=== PATIENT | female | born 1955 | race Caucasian/White ===

== ENCOUNTER 2019-11-24 11:12 | Emergency (ER) | payer MEDICAID ==
[~2019-11-24] VITALS: Ht 167.6 cm; Wt 90.0 kg
[~2019-11-24 11:12] MED LIST: EFF37.5XRC PO; LEVO88TA7 PO; MIRT7.5T11 PO; TRAZ-251 PO
[2019-11-24] MEDS ORDERED: normal saline 1000ML IV soln IVB ONE (11:35)
[2019-11-24 12:11] LABS: BASOPHILS # (AUTO) 0.1 X10'3 (0-0.2); HEMOGLOBIN 11.1 g/dl (12.0-16.0); MEAN CORPUSCULAR HGB CONC 33.1 g/dL (33.0-36.5)
[2019-11-24 12:13] LABS: BASOPHILS % (AUTO) 1.1 % (0-1); EOSINOPHILS # (AUTO) 0.2 X10'3 (0-0.9); EOSINOPHILS % (AUTO) 1.7 % (0-6); HEMATOCRIT 33.5 % (35.0-45.0); LYMPHOCYTES # (AUTO) 2.7 X10'3 (1.1-4.8); LYMPHOCYTES % (AUTO) 22.7 % (21-51); MEAN CORPUSCULAR HEMOGLOBIN 29.8 PG (27.0-31.0); MEAN PLATELET VOLUME 6.6 FL (7.4-10.4); MONOCYTES # (AUTO) 0.8 X10'3 (0-0.9); MONOCYTES % (AUTO) 6.6 % (2-12); NEUTROPHILS # (AUTO) 8.2 X10'3 (1.8-7.7); NEUTROPHILS % (AUTO) 67.9 % (42-75); PLATELET COUNT 705 X10'3 (140-440); RED BLOOD COUNT 3.73 X10'6 (4.20-5.60); RED CELL DISTRIBUTION WIDTH 14.3 % (11.5-14.5)
[2019-11-24 12:26] LABS: ALANINE AMINOTRANSFERASE 22 U/L (12-78); ALBUMIN 2.9 G/DL (3.4-5.0); ALBUMIN/GLOBULIN RATIO 0.6 (1.1-1.5); ALKALINE PHOSPHATASE 116 IU/L (46-116); ANION GAP 13 (8-16); ASPARTATE AMINO TRANSFERASE 14 U/L (10-37); BILIRUBIN,TOTAL 0.2 MG/DL (0.1-1.0); BLOOD UREA NITROGEN 15 MG/DL (7-18); BUN/CREATININE RATIO 12.4 (6.6-38.0); CALCIUM 9.4 MG/DL (8.5-10.1); CHLORIDE 109 MMOL/L (99-107); CREATININE 1.21 MG/DL (0.40-0.90); GLUCOSE 104 MG/DL (70-104); LIPASE 116 U/L (73-393); POTASSIUM 3.9 MMOL/L (3.5-5.1); SODIUM 142 MMOL/L (135-145); TOTAL CARBON DIOXIDE 19.7 MMOL/L (24-32); TOTAL PROTEIN 7.5 G/DL (6.4-8.2); eGFR 45 ML/MIN
[2019-11-24 12:58] VITALS: BP 117/69
[2019-11-24] MEDS ORDERED: metoclopramide 5 mg/ml inj IV ONE (13:00)
[2019-11-24] MEDS ORDERED: oxyCODONE/APAP 5-325mg tablet PO ONE (13:00)
--- NOTE | 2019-11-24 13:10 | NUR ---
Assited LANNY Molina with suture & staple removal. Surgical wound dressed w/ xeroform & gauze after 18 sutures & 13 liz removed.
== END 2019-11-24 13:38 | disposition home or self-care (01) ==
LOC: ER 11:13
DX: T81.89XA Other complications of procedures, not elsewhere classified, initial encounter (principal); R19.7 Diarrhea, unspecified; R06.02 Shortness of breath; Z88.5 Allergy status to narcotic agent; Z88.1 Allergy status to other antibiotic agents; Z88.8 Allergy status to other drugs, medicaments and biological substances; Z79.899 Other long term (current) drug therapy; Y92.89 Other specified places as the place of occurrence of the external cause
CPT/HCPCS: 80053; 83690; 85025; 96374; 99283; J2765; J7030

== ENCOUNTER 2019-12-08 11:19 | Inpatient (IN) | payer MEDICAID ==
[~2019-12-08] VITALS: Ht 167.6 cm; Wt 102.3 kg
[2019-12-08 12:15] LABS: BASOPHILS # (AUTO) 0.1 X10'3 (0-0.2); BASOPHILS % (AUTO) 0.7 % (0-1); EOSINOPHILS # (AUTO) 0.2 X10'3 (0-0.9); EOSINOPHILS % (AUTO) 2.6 % (0-6); HEMATOCRIT 33.3 % (35.0-45.0); HEMOGLOBIN 10.9 g/dl (12.0-16.0); LYMPHOCYTES # (AUTO) 2.7 X10'3 (1.1-4.8); LYMPHOCYTES % (AUTO) 33.1 % (21-51); MEAN CORPUSCULAR HEMOGLOBIN 29.6 PG (27.0-31.0); MEAN CORPUSCULAR HGB CONC 32.7 g/dL (33.0-36.5); MEAN CORPUSCULAR VOLUME 90.5 FL (78-98); MEAN PLATELET VOLUME 7.4 FL (7.4-10.4); MONOCYTES # (AUTO) 0.6 X10'3 (0-0.9); MONOCYTES % (AUTO) 7.6 % (2-12); NEUTROPHILS # (AUTO) 4.5 X10'3 (1.8-7.7); PLATELET COUNT 339 X10'3 (140-440); RED BLOOD COUNT 3.68 X10'6 (4.20-5.60); RED CELL DISTRIBUTION WIDTH 14.3 % (11.5-14.5)
[2019-12-08] MEDS ORDERED: iohexol 350MG/ML 100ml bottle IV ONE (12:43)
[2019-12-08 12:51] LABS: ALANINE AMINOTRANSFERASE 28 U/L (12-78); ALBUMIN 3.2 G/DL (3.4-5.0); ALBUMIN/GLOBULIN RATIO 0.8 (1.1-1.5); ALKALINE PHOSPHATASE 104 IU/L (46-116); ANION GAP 14 (8-16); ASPARTATE AMINO TRANSFERASE 17 U/L (10-37); BILIRUBIN,TOTAL 0.1 MG/DL (0.1-1.0); BLOOD UREA NITROGEN 24 MG/DL (7-18); BUN/CREATININE RATIO 23.5 (6.6-38.0); CHLORIDE 108 MMOL/L (99-107); CREATININE 1.02 MG/DL (0.40-0.90); GLUCOSE 115 MG/DL (70-104); POTASSIUM 3.9 MMOL/L (3.5-5.1); SODIUM 137 MMOL/L (135-145); TOTAL PROTEIN 7.1 G/DL (6.4-8.2); eGFR 55 ML/MIN
[2019-12-08 12:55] LABS: TOTAL CARBON DIOXIDE 14.8 MMOL/L (24-32)
[2019-12-08] MEDS ORDERED: normal saline 1000ml 1,000 ML IV ONE (13:35)
--- NOTE | 2019-12-08 13:58 | NUR ---
Per cryogenic transport driver the pt's PIV infiltrated just after receiving contrast. Went to bedside and found pt's PIV to be infiltrated. Removed IV and placed warm compress on her arm.
[2019-12-08] MEDS ORDERED: LISI10TA4 PO (14:54)
[2019-12-08] MEDS ORDERED: normal saline 1000ml 1,000 ML IV SCH (14:56)
[2019-12-08] MEDS ORDERED: acetaminophen 650mg rectal suppository RC PRN (15:00)
[2019-12-08] MEDS ORDERED: magnesium Cl slow-release 64mg tablet PO PRN (15:00)
[2019-12-08] MEDS ORDERED: magnesium 2GM in 50ml NS 50 ML IV PRN (15:00)
[2019-12-08] MEDS ORDERED: potassium CL 10mEq/100ml bag 100 ML IV PRN ×2 (15:00)
[2019-12-08] MEDS ORDERED: HYDROcodone/acetaminophen 5mg/325mg tablet PO PRN (15:00)
[2019-12-08] MEDS ORDERED: magnesium hydroxide 30ml (MOM) UD suspension PO PRN (15:00)
[2019-12-08] MEDS ORDERED: acetaminophen 325mg tablet PO PRN ×2 (15:00)
[2019-12-08] MEDS ORDERED: metoclopramide 5 mg/ml inj IV PRN (15:00)
[2019-12-08] MEDS ORDERED: ondansetron/PF 4mg/2ml inj IV PRN (15:00)
[2019-12-08] MEDS ORDERED: potassium Cl 20 mEq SR tablet PO PRN ×2 (15:00)
[2019-12-08] MEDS ORDERED: magnesium 4gm in 100ml NS 100 ML IV PRN (15:00)
[2019-12-08] MEDS ORDERED: mag hydrox/Alum hydrox/simeth 30ml oral suspension PO PRN (15:00)
[2019-12-08] MEDS ORDERED: MIRT30TA8 PO (15:10)
[2019-12-08] MEDS ORDERED: TOP100T PO (15:10)
[2019-12-08] MEDS ORDERED: FLUO40CA PO (15:10)
[2019-12-08] MEDS ORDERED: BUPR300T86 PO (15:10)
[2019-12-08] MEDS: MESSAGE TO NURSING PO SCH (15:12)
[2019-12-08 15:16] LABS: ABG BASE EXCESS -9.1 mmol/L (-2.0-2.0); ABG HCO3 14.6 mmol/L (22.0-26.0); ABG OXYGEN SATURATION 97.1 % (94-97); ABG PCO2 (T) 25.8 mmHg (32.0-45.0); ABG PO2 (T) 96.5 mmHg (75.0-100.0); ALLEN'S TEST POSITIVE; FCOHb 0.2 % (0.0-3.9); FMetHb 0.1 % (0.0-1.5); FO2Hb 96.8 % (94-97); TOTAL HEMOGLOBIN 11.3 G/dl (12.0-16.0)
[2019-12-08 16:24] LABS: MAGNESIUM 1.7 MG/DL (1.5-2.4)
[2019-12-08] MEDS ORDERED: LORazepam 0.5 MG tablet PO PRN (17:15)
[2019-12-08] MEDS: sodium bicarbonate (8.4%) inj. 100 MEQ in sodium chloride 0.45% 900 ML IV SCH (17:24)
[2019-12-08] MEDS ORDERED: topiramate 100mg tablet PO PRN (19:00)
--- NOTE | 2019-12-08 19:20 | NUR ---
I have received report from TIFFANY Lopez and had the opportunity to ask questions.
[2019-12-08 19:30] VITALS: BP 113/67
--- NOTE | 2019-12-08 19:30 | NUR ---
Pt [facility]. Belongings are with the pt.. Pt ambulated from gurney to bed and from bed to the bathroom; activity tolerated well. Place on tele monitor. 2 RN skin assessment, DART, and MRSA swab done.
[2019-12-08] MEDS: K and/or MAG REPLACEMENT MC SCH (20:00)
[2019-12-08] MEDS: buPROPion SR 150mg tablet PO SCH (20:28)
[2019-12-08] MEDS: diatr meglu/diatrizoate 30ml oral sol.-(3 dose) bottle PO SCH (20:29)
[2019-12-08] MEDS: mirtazapine 15mg tablet PO SCH (20:29)
[2019-12-08] MEDS ORDERED: temazepam 15mg capsule PO PRN (21:00)
[2019-12-08] MEDS: HYDROcodone/acetaminophen 10/325mg tab PO PRN (22:08)
[2019-12-09] VITALS (7 sets, daily range): BP systolic 93–123; BP diastolic 38–70
[2019-12-09] MEDS: HYDROcodone/acetaminophen 10/325mg tab PO PRN ×5 (03:17→22:38)
[2019-12-09] MEDS: sodium bicarbonate (8.4%) inj. 100 MEQ in sodium chloride 0.45% 900 ML IV SCH (03:18)
[2019-12-09] MEDS: sodium bicarbonate (8.4%) inj. 100 MEQ in sodium chloride 0.45% 1,000 ML IV SCH ×2 (03:54→16:21)
[2019-12-09 05:45] LABS: BASOPHILS % (AUTO) 0.8 % (0-1); EOSINOPHILS # (AUTO) 0.2 X10'3 (0-0.9); EOSINOPHILS % (AUTO) 4.6 % (0-6); HEMATOCRIT 29.1 % (35.0-45.0); HEMOGLOBIN 9.7 g/dl (12.0-16.0); LYMPHOCYTES # (AUTO) 2.5 X10'3 (1.1-4.8); LYMPHOCYTES % (AUTO) 48.7 % (21-51); MEAN CORPUSCULAR HEMOGLOBIN 30.3 PG (27.0-31.0); MEAN CORPUSCULAR HGB CONC 33.5 g/dL (33.0-36.5); MEAN CORPUSCULAR VOLUME 90.5 FL (78-98); MEAN PLATELET VOLUME 7.2 FL (7.4-10.4); MONOCYTES # (AUTO) 0.6 X10'3 (0-0.9); MONOCYTES % (AUTO) 11.3 % (2-12); NEUTROPHILS # (AUTO) 1.7 X10'3 (1.8-7.7); NEUTROPHILS % (AUTO) 34.6 % (42-75); PLATELET COUNT 301 X10'3 (140-440); RED BLOOD COUNT 3.21 X10'6 (4.20-5.60); RED CELL DISTRIBUTION WIDTH 14.3 % (11.5-14.5)
--- NOTE | 2019-12-09 06:08 | NUR ---
Problems reprioritized. Patient report given, questions answered & plan of care reviewed with TIFFANY Seay.
--- NOTE | 2019-12-09 06:12 | NUR ---
Patient in room PCU 3012X. I have received report from Nadia ALLEN and had the opportunity to ask questions and assume patient care. Patient laying in bed, awake, alert, no signs of distress, watching TV. Iv bicarb infusing at ordered rate. Will continue to monitor.
[2019-12-09 06:20] LABS: ALANINE AMINOTRANSFERASE 23 U/L (12-78); ALBUMIN 2.7 G/DL (3.4-5.0); ALBUMIN/GLOBULIN RATIO 0.8 (1.1-1.5); ALKALINE PHOSPHATASE 91 IU/L (46-116); ANION GAP 13 (8-16); ASPARTATE AMINO TRANSFERASE 16 U/L (10-37); BILIRUBIN,TOTAL 0.2 MG/DL (0.1-1.0); BLOOD UREA NITROGEN 18 MG/DL (7-18); BUN/CREATININE RATIO 20.2 (6.6-38.0); CALCIUM 8.8 MG/DL (8.5-10.1); CHLORIDE 109 MMOL/L (99-107); CHOL/HDL RATIO 5.1 (0.00-4.99); CHOLESTEROL 159 MG/DL (0-200); CREATININE 0.89 MG/DL (0.40-0.90); GLUCOSE 92 MG/DL (70-104); HDL CHOLESTEROL 31 MG/DL (35-60); LDL CHOLESTEROL 93 MG/DL (50-100); MAGNESIUM 1.8 MG/DL (1.5-2.4); POTASSIUM 3.6 MMOL/L (3.5-5.1); SODIUM 143 MMOL/L (135-145); TOTAL CARBON DIOXIDE 21.4 MMOL/L (24-32); TOTAL PROTEIN 6.1 G/DL (6.4-8.2); TRIGLYCERIDES 212 MG/DL (20-135); eGFR 64 ML/MIN
[2019-12-09] MEDS: diatr meglu/diatrizoate 30ml oral sol.-(3 dose) bottle PO SCH ×2 (07:28→10:35)
[2019-12-09] MEDS: buPROPion SR 150mg tablet PO SCH ×2 (07:29→20:34)
[2019-12-09] MEDS: FLUoxetine 20mg capsule PO SCH (07:29)
[2019-12-09] MEDS: levoTHYROXINE 88mcg tablet PO SCH (07:29)
[2019-12-09] MEDS: enoxaparin 40mg/0.4ml syringe SUBCUT SCH (07:30)
[2019-12-09] MEDS: K and/or MAG REPLACEMENT MC SCH ×2 (08:00→20:00)
[2019-12-09] MEDS: MESSAGE TO NURSING PO SCH (10:00)
[2019-12-09 10:14] LABS: CLARITY,URINE SLIGHTLY CLOUDY (Clear); COLOR,URINE YELLOW (Yellow); GLUCOSE, URINE NEGATIVE (Neg); KETONES,URINE NEGATIVE (Neg); LEUKOCYTE ESTERASE ,URINE TRACE (Neg); NITRITES, URINE NEGATIVE (Neg); OCCULT BLOOD,URINE NEGATIVE (Neg); PROTEIN,URINE NEGATIVE (Neg); UROBILINOGEN,URINE 0.2 E.U/dL (0.2-1.0)
[2019-12-09 10:19] LABS: UA COLLECTION TYPE CLN CATCH MIDSTREAM
[2019-12-09 10:20] LABS: BACTERIA,URINE 1+ /HPF (Neg); HYALINE CASTS 0-3 /LPF (NEGATIVE); MUCUS STRANDS FEW /LPF (Neg); RBC,URINE 0-2 /HPF (0-2); SQUAMOUS EPITHELIAL CELL,UR MANY /LPF (FEW); WBC,URINE 0-4 /HPF (0-4)
[2019-12-09] MEDS ORDERED: iohexol 300mg/ml 100ml inj. ONE (10:41)
--- NOTE | 2019-12-09 11:42 | NUR ---
Dr. Arauz at bedside assessing patient, awaiting results of CT abdomen and echo at this time. IV bicarb infusing.
--- NOTE | 2019-12-09 17:47 | NUR ---
Patient care discussed with TIFFANY Marte, regarding wound care. Image reviewed, likely moisture on abdomen causing irritation, recommendations for calazime cream. Patient given calazime barrier cream and educated on use.
--- NOTE | 2019-12-09 18:37 | NUR ---
Problems reprioritized. Patient report given, questions answered & plan of care reviewed with Nadia ALLEN.
[2019-12-09] MEDS: mirtazapine 15mg tablet PO SCH (20:34)
[2019-12-10] MEDS: sodium bicarbonate (8.4%) inj. 100 MEQ in sodium chloride 0.45% 1,000 ML IV SCH (02:17)
[2019-12-10 06:00] VITALS: BP 125/47
[2019-12-10 06:01] LABS: BASOPHILS % (AUTO) 0.6 % (0-1); EOSINOPHILS # (AUTO) 0.2 X10'3 (0-0.9); EOSINOPHILS % (AUTO) 5.4 % (0-6); HEMATOCRIT 28.9 % (35.0-45.0); HEMOGLOBIN 9.6 g/dl (12.0-16.0); LYMPHOCYTES # (AUTO) 2.1 X10'3 (1.1-4.8); LYMPHOCYTES % (AUTO) 48.4 % (21-51); MEAN CORPUSCULAR HEMOGLOBIN 29.9 PG (27.0-31.0); MEAN CORPUSCULAR HGB CONC 33.3 g/dL (33.0-36.5); MEAN PLATELET VOLUME 7.6 FL (7.4-10.4); MONOCYTES # (AUTO) 0.5 X10'3 (0-0.9); MONOCYTES % (AUTO) 11.6 % (2-12); NEUTROPHILS # (AUTO) 1.5 X10'3 (1.8-7.7); PLATELET COUNT 297 X10'3 (140-440); RED BLOOD COUNT 3.21 X10'6 (4.20-5.60); RED CELL DISTRIBUTION WIDTH 14.4 % (11.5-14.5); WHITE BLOOD COUNT 4.4 X10'3 (4.5-11.0)
--- NOTE | 2019-12-10 06:04 | NUR ---
Problems reprioritized. Patient report given, questions answered & plan of care reviewed with Geena Goodson RN.
--- NOTE | 2019-12-10 06:10 | NUR ---
Patient in room PCU 3010t. I have received report from Nadia ALLEN and had the opportunity to ask questions and assume patient care.
[2019-12-10 06:20] LABS: ALANINE AMINOTRANSFERASE 20 U/L (12-78); ALBUMIN 2.5 G/DL (3.4-5.0); ALBUMIN/GLOBULIN RATIO 0.8 (1.1-1.5); ALKALINE PHOSPHATASE 83 IU/L (46-116); ANION GAP 9 (8-16); ASPARTATE AMINO TRANSFERASE 15 U/L (10-37); BILIRUBIN,TOTAL 0.1 MG/DL (0.1-1.0); BLOOD UREA NITROGEN 15 MG/DL (7-18); BUN/CREATININE RATIO 16.3 (6.6-38.0); CALCIUM 8.7 MG/DL (8.5-10.1); CHLORIDE 110 MMOL/L (99-107); CREATININE 0.92 MG/DL (0.40-0.90); GLUCOSE 90 MG/DL (70-104); MAGNESIUM 1.8 MG/DL (1.5-2.4); POTASSIUM 3.9 MMOL/L (3.5-5.1); SODIUM 145 MMOL/L (135-145); TOTAL CARBON DIOXIDE 26.2 MMOL/L (24-32); TOTAL PROTEIN 5.8 G/DL (6.4-8.2); eGFR 62 ML/MIN
[2019-12-10] MEDS: K and/or MAG REPLACEMENT MC SCH ×2 (08:00→20:00)
[2019-12-10] MEDS: levoTHYROXINE 88mcg tablet PO SCH (08:55)
[2019-12-10] MEDS: furosemide 40mg/4ml inj IV SCH ×2 (08:55→20:49)
[2019-12-10] MEDS: FLUoxetine 20mg capsule PO SCH (08:55)
[2019-12-10] MEDS: enoxaparin 40mg/0.4ml syringe SUBCUT SCH (08:55)
[2019-12-10] MEDS: buPROPion SR 150mg tablet PO SCH ×2 (08:55→20:49)
[2019-12-10] MEDS: MESSAGE TO NURSING PO SCH (10:00)
[2019-12-10] MEDS: HYDROcodone/acetaminophen 10/325mg tab PO PRN ×3 (10:58→21:52)
[2019-12-10 11:00] VITALS: BP 100/45
--- NOTE | 2019-12-10 11:11 | NUR ---
PAGER ID: [phone] MESSAGE: Geena perez [phone]. Rianna Mcmahon [id number]. Pt c/o dysuria today, UA sent yesterday but was dirty sample. Do you want another UA or some pyridium? Thanks!
[2019-12-10 11:37] LABS: CLARITY,URINE CLEAR (Clear); COLOR,URINE STRAW (Yellow); GLUCOSE, URINE NEGATIVE (Neg); KETONES,URINE NEGATIVE (Neg); LEUKOCYTE ESTERASE ,URINE NEGATIVE (Neg); NITRITES, URINE NEGATIVE (Neg); OCCULT BLOOD,URINE NEGATIVE (Neg); PROTEIN,URINE NEGATIVE (Neg); UROBILINOGEN,URINE 0.2 E.U/dL (0.2-1.0)
[2019-12-10 11:41] LABS: UA COLLECTION TYPE CLN CATCH MIDSTREAM
[2019-12-10 15:00] VITALS: BP 96/41
[2019-12-10 18:00] VITALS: BP 137/80
--- NOTE | 2019-12-10 18:30 | NUR ---
Patient in room PCU 3017. I have received report from Geena Gardner RN and had the opportunity to ask questions and assume patient care.
--- NOTE | 2019-12-10 18:30 | NUR ---
Problems reprioritized. Patient report given, questions answered & plan of care reviewed with Kinza ALLEN.
[2019-12-10] MEDS: mirtazapine 15mg tablet PO SCH (20:49)
--- NOTE | 2019-12-10 21:45 | NUR ---
pt was hard to arouse earlier and had thick sputum, held nonessential medication due to potential of aspirating. rechecked pt BP, was low so held propranlol, will continue to monitor pt Addendum: 12/11/19 at 0607 by Kinza Washington RN wrong pt
[2019-12-10 22:00] VITALS: BP 99/52
[2019-12-11 05:42] VITALS: BP 118/56
--- NOTE | 2019-12-11 06:08 | NUR ---
Problems reprioritized. Patient report given, questions answered & plan of care reviewed with Phuong ALLEN.
--- NOTE | 2019-12-11 06:08 | NUR ---
Patient in room PCU 3017. I have received report from TIFFANY Echols and had the opportunity to ask questions and assume patient care. Patient asleep in bed and in no acute distress.
[2019-12-11 06:12] LABS: BASOPHILS % (AUTO) 0.8 % (0-1); EOSINOPHILS # (AUTO) 0.2 X10'3 (0-0.9); EOSINOPHILS % (AUTO) 4.2 % (0-6); HEMATOCRIT 32.2 % (35.0-45.0); HEMOGLOBIN 10.7 g/dl (12.0-16.0); LYMPHOCYTES # (AUTO) 2.1 X10'3 (1.1-4.8); LYMPHOCYTES % (AUTO) 40.7 % (21-51); MEAN CORPUSCULAR HEMOGLOBIN 29.6 PG (27.0-31.0); MEAN CORPUSCULAR HGB CONC 33.3 g/dL (33.0-36.5); MEAN CORPUSCULAR VOLUME 88.9 FL (78-98); MEAN PLATELET VOLUME 7.5 FL (7.4-10.4); MONOCYTES # (AUTO) 0.6 X10'3 (0-0.9); MONOCYTES % (AUTO) 10.6 % (2-12); NEUTROPHILS # (AUTO) 2.3 X10'3 (1.8-7.7); NEUTROPHILS % (AUTO) 43.7 % (42-75); PLATELET COUNT 327 X10'3 (140-440); RED BLOOD COUNT 3.62 X10'6 (4.20-5.60); RED CELL DISTRIBUTION WIDTH 14.2 % (11.5-14.5); WHITE BLOOD COUNT 5.2 X10'3 (4.5-11.0)
[2019-12-11 06:21] LABS: ALANINE AMINOTRANSFERASE 17 U/L (12-78); ALBUMIN 2.8 G/DL (3.4-5.0); ALBUMIN/GLOBULIN RATIO 0.8 (1.1-1.5); ALKALINE PHOSPHATASE 88 IU/L (46-116); ANION GAP 12 (8-16); ASPARTATE AMINO TRANSFERASE 14 U/L (10-37); BILIRUBIN,TOTAL 0.2 MG/DL (0.1-1.0); BLOOD UREA NITROGEN 20 MG/DL (7-18); BUN/CREATININE RATIO 19.8 (6.6-38.0); CALCIUM 9.1 MG/DL (8.5-10.1); CHLORIDE 104 MMOL/L (99-107); CREATININE 1.01 MG/DL (0.40-0.90); GLUCOSE 94 MG/DL (70-104); MAGNESIUM 1.7 MG/DL (1.5-2.4); POTASSIUM 3.6 MMOL/L (3.5-5.1); SODIUM 142 MMOL/L (135-145); TOTAL CARBON DIOXIDE 26.4 MMOL/L (24-32); TOTAL PROTEIN 6.5 G/DL (6.4-8.2); eGFR 55 ML/MIN
[2019-12-11 07:00] VITALS: BP 121/71
[2019-12-11] MEDS: furosemide 40mg/4ml inj IV SCH (07:22)
[2019-12-11] MEDS: enoxaparin 40mg/0.4ml syringe SUBCUT SCH (07:23)
[2019-12-11] MEDS: levoTHYROXINE 88mcg tablet PO SCH (07:23)
[2019-12-11] MEDS: buPROPion SR 150mg tablet PO SCH (07:23)
[2019-12-11] MEDS: FLUoxetine 20mg capsule PO SCH (07:23)
[2019-12-11] MEDS: K and/or MAG REPLACEMENT MC SCH (07:33)
[2019-12-11] MEDS ORDERED: FURO20TA4 PO (11:04)
[2019-12-11] MEDS ORDERED: POTA10TA36 PO (11:04)
--- NOTE | 2019-12-11 12:37 | NUR ---
Patient stable for discharge per MD orders. All discharge instructions reviewed and all questions answered appropriately. Patient belongings collected and sent with patient. New prescriptions were sent electronically to [facility] in [place]. Patient will call and schedule a follow up appointment with PCP at [facility]. Patient will also call Dr. Verdugo to set up an appointment as well. PIV discontinued and cannula intact. electric sealing machine operator discontinued. Patient ambulated down to [facility] and left via private vehicle that was parked across the street and patient drove herself home.
== END 2019-12-11 12:37 | disposition home or self-care (01) | DRG 194 ==
LOC: ER 11:20 → ED HOLD 14:56 → PCU 3S 19:30
PROVIDERS: ADMIT Family Medicine; ATTEND Family Medicine
PROC: BW211ZZ Computerized Tomography (CT Scan) of Abdomen and Pelvis using Low Osmolar Contrast (ICD-10-PCS; principal; 2019-12-09)
DX: I50.31 Acute diastolic (congestive) heart failure (principal); I50.810 Right heart failure, unspecified; I27.20 Pulmonary hypertension, unspecified; E87.2 Acidosis; D64.9 Anemia, unspecified; E78.5 Hyperlipidemia, unspecified; E03.9 Hypothyroidism, unspecified; F32.9 Major depressive disorder, single episode, unspecified; J45.909 Unspecified asthma, uncomplicated; Z03.818 Encounter for observation for suspected exposure to other biological agents ruled out
CPT/HCPCS: 36415; 36600; 71045; 71275; 74177; 76937; 80053; 80061; 81001; 81003; 82803; 83605; 83735; 83880; 84100; 84443; 84484; 85018; 85025; 87040; 87081; 87635; 93005; 93306; 94760; 97116; 99285; G0378; J1650; J1940; J7030; Q9963; Q9967

== ENCOUNTER 2020-03-02 09:46 | Day surgery (SDC) | payer MEDICAID ==
[~2020-03-02] VITALS: Ht 167.6 cm; Wt 95.3 kg
[~2020-03-02 09:46] MED LIST changes: +BUPR300T86 PO; -EFF37.5XRC PO; +FLUO40CA PO; +FURO20TA4 PO; +LIOT25TA12 PO; +LISI10TA4 PO; +MESSAGE TO NURSING PO ONE; +MIRT30TA8 PO; +MIRT45TA83 PO; -MIRT7.5T11 PO; +POTA10TA36 PO; +TOP100T PO; -TRAZ-251 PO; +ceFAZolin 2gm in dextrose, iso 50 ML IV ONE; +famotidine 10mg tablet PO ONE; +famotidine 20mg tablet PO ONE
[2020-03-02 10:00] VITALS: BP 114/90
[2020-03-02] MEDS ORDERED: CLINDAMYCIN/D5W 900mg/50ml 50 ML IV ONE (10:35)
[2020-03-02] MEDS: ringers solution, lacted 1,000 ML IV SCH ×2 (11:21→20:04)
[2020-03-02 12:00] LABS: BASOPHILS % (AUTO) 0.5 % (0-1); EOSINOPHILS # (AUTO) 0.1 X10'3 (0-0.9); EOSINOPHILS % (AUTO) 1.1 % (0-6); LYMPHOCYTES # (AUTO) 3.1 X10'3 (1.1-4.8); MEAN CORPUSCULAR HEMOGLOBIN 30.8 PG (27.0-31.0); MEAN CORPUSCULAR HGB CONC 33.8 g/dL (33.0-36.5); MEAN CORPUSCULAR VOLUME 91.3 FL (78-98); MEAN PLATELET VOLUME 7.3 FL (7.4-10.4); MONOCYTES # (AUTO) 0.5 X10'3 (0-0.9); MONOCYTES % (AUTO) 6.1 % (2-12); NEUTROPHILS # (AUTO) 5.2 X10'3 (1.8-7.7); NEUTROPHILS % (AUTO) 58.3 % (42-75); PRE OP HEMOGLOBIN 13.8 g/dL (12.0-16.0); PRE OP PLATELET COUNT 302 X10'3 (140-440); RED BLOOD COUNT 4.49 X10'6 (4.20-5.60); RED CELL DISTRIBUTION WIDTH 15.2 % (11.5-14.5)
[2020-03-02 12:15] LABS: ALBUMIN 3.8 G/DL (3.4-5.0); ALKALINE PHOSPHATASE 117 IU/L (46-116); BLOOD UREA NITROGEN 20 MG/DL (7-18); BUN/CREATININE RATIO 17.2 (6.6-38.0); CALCIUM 9.3 MG/DL (8.5-10.1); CHLORIDE 110 MMOL/L (99-107); CREATININE 1.16 MG/DL (0.40-0.90); PRE OP ALT 27 U/L (30-65); PRE OP ANION GAP 12 (8-16); PRE OP AST 13 U/L (10-37); PRE OP BILIRUB, TOTAL 0.2 MG/DL (0.0-1.0); PRE OP GLUCOSE 91 MG/DL (70-104); PRE OP POTASSIUM 4.5 MMOL/L (3.4-5.1); PRE OP SODIUM 142 MMOL/L (135-145); TOTAL CARBON DIOXIDE 19.7 MMOL/L (24-32); TOTAL PROTEIN 7.7 G/DL (6.4-8.2); eGFR 47 ML/MIN
[2020-03-02] MEDS ORDERED: diazepam 5mg tablet PO ONE (12:50)
[2020-03-02] MEDS ORDERED: oxyCODONE/APAP 5-325mg tablet PO PRN (16:45)
[2020-03-02] MEDS ORDERED: topiramate 100mg tablet PO PRN ×2 (16:45→17:30)
[2020-03-02 17:15] VITALS: BP 126/61
--- NOTE | 2020-03-02 17:15 | NUR ---
Received pt via wc from pas unit. Sx postponed until 03/03 pt from out of town. Placed in room 344B call light in reach, bed low. Verbalizes understanding of POC.
--- NOTE | 2020-03-02 17:15 | NUR ---
PT TRANSFERRED FROM [facility] TO SURGICAL, PTS SURGERY WAS DELAYED UNTIL TOMORROW. REPORT GIVEN.
[2020-03-02] MEDS ORDERED: mirtazapine 15mg tablet PO PRN (17:30)
--- NOTE | 2020-03-02 18:40 | NUR ---
Problems reprioritized. Patient report given, questions answered & plan of care reviewed with TIFFANY Snyder.
--- NOTE | 2020-03-02 18:42 | NUR ---
Patient in room ISMAEL 344. I have received report from VLADIMIR ALLEN and had the opportunity to ask questions and assume patient care.
[2020-03-02 20:00] VITALS: BP 114/58
[2020-03-02] MEDS: oxyCODONE/APAP 10/325mg tablet PO PRN (21:49)
[2020-03-03] VITALS (19 sets, daily range): BP systolic 100–136; BP diastolic 48–82
--- NOTE | 2020-03-03 06:30 | NUR ---
Patient in room ISMAEL 344. I have received report from Radha ALLEN and had the opportunity to ask questions and assume patient care.
--- NOTE | 2020-03-03 06:30 | NUR ---
Problems reprioritized. Patient report given, questions answered & plan of care reviewed with BEAU RN.
[2020-03-03] MEDS ORDERED: FLUoxetine 20mg capsule PO SCH (08:00)
[2020-03-03] MEDS ORDERED: buPROPion SR 100mg tab PO SCH (08:00)
[2020-03-03] MEDS ORDERED: lisinopril 10 MG tablet PO SCH (08:00)
[2020-03-03] MEDS ORDERED: LIOthyronine 25mcg tablet PO SCH (08:00)
[2020-03-03] MEDS ORDERED: levoTHYROXINE 88mcg tablet PO SCH (08:00)
[2020-03-03] MEDS: oxyCODONE/APAP 10/325mg tablet PO PRN ×2 (08:32→15:17)
--- NOTE | 2020-03-03 11:36 | NUR ---
Report called to recovery at this time. All questions were answered.
[2020-03-03] MEDS ORDERED: proCHLORperazine 10 MG/2 ml inj IV PRN (12:00)
[2020-03-03] MEDS ORDERED: labetalol 20mg/4ml (5mg/ml) syringe IV PRN (12:00)
[2020-03-03] MEDS ORDERED: ringers solution, lacted 1,000 ML IV SCH (12:00)
[2020-03-03] MEDS ORDERED: fentaNYL/PF 50MCG/1 ML 2ML syringe IV PRN ×2 (12:00)
[2020-03-03] MEDS ORDERED: meperidine/PF 25mg/ml syringe IV PRN (12:00)
[2020-03-03] MEDS ORDERED: HYDROmorphone inj. 0.5 MG/0.5 ML DISP.SYRIN IV PRN ×2 (12:00)
[2020-03-03] MEDS ORDERED: ondansetron/PF 4mg/2ml inj IV PRN (12:00)
[2020-03-03] MEDS ORDERED: hydrALAZINE 20mg/ml inj. IV PRN (12:00)
[2020-03-03] MEDS ORDERED: acetaminophen 1,000mg/100ml IV 100 ML IV PRN (12:00)
[2020-03-03] MEDS ORDERED: sevoflurane 250ml liquid IH ONE (12:02)
[2020-03-03] MEDS ORDERED: fentaNYL/PF 50MCG/1 ML 2ML syringe ONE (12:07)
[2020-03-03] MEDS ORDERED: midazolam 2 mg/2 ml injection ONE (12:07)
[2020-03-03] MEDS ORDERED: ondansetron/PF 4mg/2ml inj ONE (12:19)
[2020-03-03] MEDS ORDERED: LIDOcaine 2% (20mg/ml) 5ml vial ONE (12:19)
[2020-03-03] MEDS ORDERED: dexamethasone sod phosphate 4mg/ml inj. ONE (12:19)
[2020-03-03] MEDS ORDERED: ceFAZolin 1000mg inj ONE ×2 (12:19)
[2020-03-03] MEDS ORDERED: propofol inj 20 ML IV ONE (12:19)
[2020-03-03] MEDS ORDERED: ePHEDrine 50MG/ML INJ. ONE (12:24)
[2020-03-03] MEDS ORDERED: BUPIVAcaine/PF 2.5 mg/ml (0.25%) 30ml vial ONE (13:01)
[2020-03-03] MEDS ORDERED: phenylephrine 10mg/ml inj. ONE (13:03)
[2020-03-03] MEDS ORDERED: 0.9 % SODIUM CHLORIDE 10 ML VIAL ONE (13:03)
--- NOTE | 2020-03-03 14:00 | NUR ---
ADMITTED TO PACU FROM OR ACCOMPANIED BY ANESTHESIA. INTIAL PHYSICAL ASSESSMENT DONE AND RECORDED. REPORT RECEIVED FROM ANESTHESIA.
--- NOTE | 2020-03-03 15:00 | NUR ---
PACU DISCHARGE CRITERIA MET, REPORT GIVEN TO FLOOR. DENIES PAIN OR DISCOMFORT, TRANSFERRED TO ROOM IN STABLE GOOD CONDITION.
--- NOTE | 2020-03-03 18:24 | NUR ---
Problems reprioritized. Patient report given, questions answered & plan of care reviewed with Lillian ALLEN.
--- NOTE | 2020-03-03 18:30 | NUR ---
Patient in room . I have received report from BEAU ALLEN and had the opportunity to ask questions and assume patient care. PATIENT IS READY FOR DISCHARGE TONIGHT AFTER LAST VITAL SIGNS.
--- NOTE | 2020-03-03 18:45 | NUR ---
DISCHARGE INSTRUCTIONS REVIEWED WITH PATIENT, VERBALIZED UNDERSTANDING SIGNED AND COPIES GIVEN. PIV DISCONTINUED NO BLEEDING NOTED.
--- NOTE | 2020-03-03 19:10 | NUR ---
PATIENT LEFT FOR DISCHARGE HOME WITH DAUGHTER IN A WHEELCHAIR WITH STAFF TO THE FRONT DOOR.
== END 2020-03-03 19:10 | disposition home or self-care (01) ==
LOC: PAS 09:46 → SUR 3N 16:42 → PAS 03-03 19:10
PROVIDERS: ATTEND Surgery
DX: T81.89XS Other complications of procedures, not elsewhere classified, sequela (principal); K63.2 Fistula of intestine; K63.89 Other specified diseases of intestine; J45.909 Unspecified asthma, uncomplicated; E03.9 Hypothyroidism, unspecified; Z79.899 Other long term (current) drug therapy; Z88.5 Allergy status to narcotic agent; Z87.891 Personal history of nicotine dependence; Y83.8 Other surgical procedures as the cause of abnormal reaction of the patient, or of later complication, without mention of misadventure at the time of the procedure; Y92.89 Other specified places as the place of occurrence of the external cause
CPT/HCPCS: 11042; 36415; 76937; 80053; 82948; 85025; 87081; J0690; J1100; J2001; J2250; J2370; J2405; J2704; J3010; J3490; J7120; A4618; A7000; G0378

== ENCOUNTER 2020-03-16 10:49 | Inpatient (IN) | payer MEDICAID ==
[~2020-03-16] VITALS: Ht 167.6 cm; Wt 90.9 kg
[~2020-03-16 10:49] MED LIST changes: -FURO20TA4 PO; -MESSAGE TO NURSING PO ONE; -MIRT30TA8 PO; -POTA10TA36 PO; -ceFAZolin 2gm in dextrose, iso 50 ML IV ONE; -famotidine 10mg tablet PO ONE; -famotidine 20mg tablet PO ONE
[2020-03-16 11:36] LABS: BASOPHILS # (AUTO) 0.1 X10'3 (0-0.2); BASOPHILS % (AUTO) 0.6 % (0-1); EOSINOPHILS # (AUTO) 0.2 X10'3 (0-0.9); EOSINOPHILS % (AUTO) 2.4 % (0-6); HEMATOCRIT 41.3 % (35.0-45.0); HEMOGLOBIN 13.6 g/dl (12.0-16.0); LYMPHOCYTES # (AUTO) 2.6 X10'3 (1.1-4.8); LYMPHOCYTES % (AUTO) 26.6 % (21-51); MEAN CORPUSCULAR HEMOGLOBIN 29.9 PG (27.0-31.0); MEAN CORPUSCULAR HGB CONC 32.8 g/dL (33.0-36.5); MEAN CORPUSCULAR VOLUME 91.1 FL (78-98); MONOCYTES # (AUTO) 0.6 X10'3 (0-0.9); MONOCYTES % (AUTO) 6.2 % (2-12); NEUTROPHILS # (AUTO) 6.2 X10'3 (1.8-7.7); NEUTROPHILS % (AUTO) 64.2 % (42-75); PLATELET COUNT 326 X10'3 (140-440); RED BLOOD COUNT 4.54 X10'6 (4.20-5.60); RED CELL DISTRIBUTION WIDTH 14.3 % (11.5-14.5); WHITE BLOOD COUNT 9.7 X10'3 (4.5-11.0)
[2020-03-16] MEDS ORDERED: iohexol 350MG/ML 100ml bottle IV ONE (11:55)
[2020-03-16 12:01] LABS: ALANINE AMINOTRANSFERASE 29 U/L (12-78); ALBUMIN 3.7 G/DL (3.4-5.0); ALKALINE PHOSPHATASE 118 IU/L (46-116); ANION GAP 10 (8-16); ASPARTATE AMINO TRANSFERASE 17 U/L (10-37); BILIRUBIN,TOTAL 0.1 MG/DL (0.1-1.0); BLOOD UREA NITROGEN 29 MG/DL (7-18); BUN/CREATININE RATIO 27.4 (6.6-38.0); CALCIUM 9.1 MG/DL (8.5-10.1); CHLORIDE 107 MMOL/L (99-107); CREATININE 1.06 MG/DL (0.40-0.90); GLUCOSE 105 MG/DL (70-104); POTASSIUM 4.7 MMOL/L (3.5-5.1); SODIUM 137 MMOL/L (135-145); TOTAL CARBON DIOXIDE 19.8 MMOL/L (24-32); TOTAL PROTEIN 7.5 G/DL (6.4-8.2); eGFR 52 ML/MIN
[2020-03-16 12:03] LABS: PARTIAL THROMBOPLASTIN TIME 26 SECONDS (22-32)
[2020-03-16] MEDS ORDERED: ondansetron/PF 4mg/2ml inj IV ONE (14:00)
--- NOTE | 2020-03-16 14:03 | NUR ---
SPOKE WITH PT DAUGHTER ADELE AND INFORMED HER OF POC. PT IS GOING TO BE ADMITTED. SHE ALSO INFORMED ME THAT PT HAS ANXIETY AND NOT DEALING WITH HER PROBLEMS VERY WELL.
[2020-03-16] MEDS ORDERED: HYDROcodone/acetaminophen 10/325mg tab PO ONE (14:10)
[2020-03-16] MEDS ORDERED: acetaminophen 325mg tablet PO PRN ×2 (14:25)
[2020-03-16] MEDS ORDERED: heparin 10,000 units/1 ML INJ IV PRN (14:25)
[2020-03-16] MEDS ORDERED: potassium Cl 20 mEq SR tablet PO PRN ×2 (14:25)
[2020-03-16] MEDS ORDERED: ipratropium/albuterol 3ml nebule NEB PRN (14:25)
[2020-03-16] MEDS ORDERED: magnesium 4gm in 100ml NS 100 ML IV PRN (14:25)
[2020-03-16] MEDS ORDERED: heparin 25,000 UNIT/250ml bag 250 ML IV SCH (14:25)
[2020-03-16] MEDS ORDERED: mag hydrox/Alum hydrox/simeth 30ml oral suspension PO PRN (14:25)
[2020-03-16] MEDS ORDERED: potassium CL 10mEq/100ml bag 100 ML IV PRN ×2 (14:25)
[2020-03-16] MEDS: normal saline 1000ml 1,000 ML IV SCH (14:25)
[2020-03-16] MEDS ORDERED: HYDROcodone/acetaminophen 5mg/325mg tablet PO PRN (14:25)
[2020-03-16] MEDS ORDERED: magnesium 2GM in 50ml NS 50 ML IV PRN (14:25)
[2020-03-16] MEDS ORDERED: heparin 10,000 units/1 ML INJ IV ONE (14:25)
[2020-03-16] MEDS ORDERED: magnesium hydroxide 30ml (MOM) UD suspension PO PRN (14:25)
--- NOTE | 2020-03-16 15:14 | NUR ---
ECHO IN PROGRESS
[2020-03-16] MEDS ORDERED: TOP100T PO (16:07)
[2020-03-16] MEDS ORDERED: MULT-1085 PO (16:07)
[2020-03-16] MEDS ORDERED: topiramate 100mg tablet PO PRN (16:15)
[2020-03-16] MEDS ORDERED: mirtazapine 15mg tablet PO PRN (16:15)
--- NOTE | 2020-03-16 17:34 | NUR ---
patient received in room 4.
--- NOTE | 2020-03-16 18:44 | NUR ---
Pt said she is feeling a little nervous with her diagnosis, but thankful it is figured out. She said she was hungry, got her food. Gave her a few warm blankets.
--- NOTE | 2020-03-16 19:10 | NUR ---
moved pt ot bed 8
--- NOTE | 2020-03-16 19:44 | NUR ---
6 hr ptt getting drawn now. pt moved from er bed 4 to er bed 8. anticipate to be an er admit hold through the night per ore charger. pt remains on heparin gtt.
[2020-03-16] MEDS: K and/or MAG REPLACEMENT MC SCH (20:00)
[2020-03-16] MEDS: ondansetron/PF 4mg/2ml inj IV PRN (21:13)
--- NOTE | 2020-03-16 21:23 | NUR ---
DR MARTIN PAGED TO UPDATED THAT PTT >139, HEPARIN HELP PER PROTOCOL, WILL RESTART IN 2 HR PER PROTOCOL. PT ALSO REQUESTING ANTIANXIETY RX. AWAITING IPA
[2020-03-16] MEDS ORDERED: LORazepam 1 MG tablet PO ONE (21:25)
[2020-03-17] VITALS: BP 109/49
[2020-03-17 03:01] VITALS: BP 89/55
[2020-03-17] MEDS: normal saline 1000ml 1,000 ML IV SCH ×2 (03:30→10:25)
[2020-03-17] MEDS: HYDROcodone/acetaminophen 10/325mg tab PO PRN ×2 (05:47→12:29)
[2020-03-17 05:59] LABS: BASOPHILS # (AUTO) 0.1 X10'3 (0-0.2); BASOPHILS % (AUTO) 0.8 % (0-1); EOSINOPHILS # (AUTO) 0.3 X10'3 (0-0.9); EOSINOPHILS % (AUTO) 4.7 % (0-6); HEMATOCRIT 36.3 % (35.0-45.0); HEMOGLOBIN 12.1 g/dl (12.0-16.0); LYMPHOCYTES # (AUTO) 2.8 X10'3 (1.1-4.8); LYMPHOCYTES % (AUTO) 39.1 % (21-51); MEAN CORPUSCULAR HEMOGLOBIN 30.6 PG (27.0-31.0); MEAN CORPUSCULAR HGB CONC 33.3 g/dL (33.0-36.5); MEAN CORPUSCULAR VOLUME 91.9 FL (78-98); MEAN PLATELET VOLUME 7.5 FL (7.4-10.4); MONOCYTES # (AUTO) 0.6 X10'3 (0-0.9); MONOCYTES % (AUTO) 8.4 % (2-12); NEUTROPHILS # (AUTO) 3.4 X10'3 (1.8-7.7); PLATELET COUNT 303 X10'3 (140-440); RED BLOOD COUNT 3.95 X10'6 (4.20-5.60); RED CELL DISTRIBUTION WIDTH 14.6 % (11.5-14.5); WHITE BLOOD COUNT 7.2 X10'3 (4.5-11.0)
[2020-03-17 06:00] VITALS: BP 111/57
[2020-03-17 06:16] LABS: ALANINE AMINOTRANSFERASE 24 U/L (12-78); ALBUMIN/GLOBULIN RATIO 0.9 (1.1-1.5); ALKALINE PHOSPHATASE 97 IU/L (46-116); ANION GAP 13 (8-16); ASPARTATE AMINO TRANSFERASE 16 U/L (10-37); BILIRUBIN,TOTAL 0.1 MG/DL (0.1-1.0); BLOOD UREA NITROGEN 27 MG/DL (7-18); BUN/CREATININE RATIO 24.5 (6.6-38.0); CALCIUM 8.8 MG/DL (8.5-10.1); CHLORIDE 109 MMOL/L (99-107); CHOL/HDL RATIO 3.1 (0.00-4.99); CHOLESTEROL 179 MG/DL (0-200); GLUCOSE 99 MG/DL (70-104); HDL CHOLESTEROL 57 MG/DL (35-60); LDL CHOLESTEROL 100 MG/DL (50-100); MAGNESIUM 1.8 MG/DL (1.5-2.4); POTASSIUM 4.3 MMOL/L (3.5-5.1); SODIUM 140 MMOL/L (135-145); TOTAL CARBON DIOXIDE 18.1 MMOL/L (24-32); TOTAL PROTEIN 6.3 G/DL (6.4-8.2); TRIGLYCERIDES 163 MG/DL (20-135); eGFR 50 ML/MIN
[2020-03-17] MEDS ORDERED: buPROPion SR 150mg tablet PO SCH (08:00)
[2020-03-17] MEDS ORDERED: topiramate 100mg tablet PO SCH (08:00)
[2020-03-17] MEDS ORDERED: multivitamins, therapeutics tablet PO SCH (08:00)
[2020-03-17] MEDS ORDERED: levoTHYROXINE 88mcg tablet PO SCH (08:00)
[2020-03-17] MEDS: K and/or MAG REPLACEMENT MC SCH (08:00)
[2020-03-17] MEDS ORDERED: lisinopril 10 MG tablet PO SCH (08:00)
[2020-03-17] MEDS: ondansetron/PF 4mg/2ml inj IV PRN (09:27)
[2020-03-17] MEDS ORDERED: APIX5TAB3 PO (10:59)
[2020-03-17 11:00] VITALS: BP 100/48
[2020-03-17] MEDS ORDERED: apixaban 5mg tablet PO SCH (11:00)
--- NOTE | 2020-03-17 14:10 | NUR ---
Per MD orders patient stable for discharge home. New prescriptions called in to pharmacy of preference. 30 day free trial card provided for eliquis prescription. Discharge packet reviewed at patient bedside and all questions answered to patient satisfaction. PIV discontinued cannula intact. Tele monitoring discontinued. All belongings sent with patient. Transferred to private vehicle via wheelchair accompanied by aide.
== END 2020-03-17 14:54 | disposition home or self-care (01) | DRG 134 ==
LOC: ER 10:50 → ED HOLD 14:25 → PCU 3S 03-17 00:16
PROVIDERS: ADMIT Family Medicine; ATTEND Family Medicine
DX: I26.99 Other pulmonary embolism without acute cor pulmonale (principal); E03.9 Hypothyroidism, unspecified; F32.9 Major depressive disorder, single episode, unspecified; I50.32 Chronic diastolic (congestive) heart failure; N18.30 Chronic kidney disease, stage 3 unspecified; Z79.01 Long term (current) use of anticoagulants; Z80.1 Family history of malignant neoplasm of trachea, bronchus and lung; Z87.09 Personal history of other diseases of the respiratory system; Z87.891 Personal history of nicotine dependence
CPT/HCPCS: 36415; 71045; 71275; 80053; 80061; 83735; 83880; 84484; 85025; 85610; 85730; 93306; 93308; 94760; 96374; 97116; 97161; 99285; G0378; J1644; J2405; J7030; Q9967

== ENCOUNTER 2020-08-04 12:57 | Inpatient (IN) | payer MEDICAID ==
[2020-08-04] VITALS (15 sets, daily range): BP systolic 87–139; BP diastolic 52–84
[~2020-08-04] VITALS: Ht 167.6 cm; Wt 90.9 kg
[~2020-08-04 12:57] MED LIST changes: +APIX5TAB3 PO; -FLUO40CA PO; -LIOT25TA12 PO; +LISI10TA27 PO; -LISI10TA4 PO; +MULT-1085 PO
[2020-08-04] MEDS ORDERED: APIX5TAB3 PO (13:51)
[2020-08-04] MEDS ORDERED: BREX1TAB PO (13:51)
[2020-08-04] MEDS ORDERED: POTA8TAB58 PO (13:53)
[2020-08-04] MEDS ORDERED: FURO20TA4 PO (13:53)
[2020-08-04] MEDS ORDERED: potassium Cl 20 mEq SR tablet PO PRN ×2 (14:00)
[2020-08-04] MEDS ORDERED: ondansetron/PF 4mg/2ml inj IV PRN ×2 (14:00→15:30)
[2020-08-04] MEDS ORDERED: potassium Cl 40MEQ/1/2NS 520ml 520 ML IV PRN ×2 (14:00)
[2020-08-04] MEDS ORDERED: acetaminophen 325mg tablet PO PRN (14:00)
[2020-08-04] MEDS ORDERED: magnesium 4gm in 100ml NS 100 ML IV PRN (14:00)
[2020-08-04] MEDS ORDERED: magnesium Cl slow-release 64mg tablet PO PRN (14:00)
[2020-08-04] MEDS ORDERED: magnesium 2GM in 50ml NS 50 ML IV PRN (14:00)
[2020-08-04] MEDS: normal saline 1000ml 1,000 ML IV SCH ×2 (14:55→21:27)
[2020-08-04] MEDS: HYDROmorphone inj. 0.5 MG/0.5 ML DISP.SYRIN IV PRN ×4 (14:57→21:23)
[2020-08-04 15:22] LABS: BASOPHILS # (AUTO) 0.1 X10'3 (0-0.2); BASOPHILS % (AUTO) 0.4 % (0-1); EOSINOPHILS # (AUTO) 0.6 X10'3 (0-0.9); EOSINOPHILS % (AUTO) 4.4 % (0-6); LYMPHOCYTES # (AUTO) 2.1 X10'3 (1.1-4.8); LYMPHOCYTES % (AUTO) 15.8 % (21-51); MEAN CORPUSCULAR HEMOGLOBIN 29.3 PG (27.0-31.0); MEAN CORPUSCULAR VOLUME 91.4 FL (78-98); MEAN PLATELET VOLUME 6.5 FL (7.4-10.4); MONOCYTES % (AUTO) 7.6 % (2-12); NEUTROPHILS # (AUTO) 9.7 X10'3 (1.8-7.7); NEUTROPHILS % (AUTO) 71.8 % (42-75); PRE OP PLATELET COUNT 716 X10'3 (140-440); RED BLOOD COUNT 2.73 X10'6 (4.20-5.60); RED CELL DISTRIBUTION WIDTH 15.7 % (11.5-14.5)
[2020-08-04 15:28] LABS: ALANINE AMINOTRANSFERASE 23 U/L (12-78); ALKALINE PHOSPHATASE 127 IU/L (46-116); ANION GAP 11 (8-16); ASPARTATE AMINO TRANSFERASE 23 U/L (10-37); BILIRUBIN,TOTAL 0.3 MG/DL (0.1-1.0); BLOOD UREA NITROGEN 13 MG/DL (7-18); BUN/CREATININE RATIO 15.1 (6.6-38.0); CALCIUM 9.4 MG/DL (8.5-10.1); CHLORIDE 107 MMOL/L (99-107); CREATININE 0.86 MG/DL (0.40-0.90); GLUCOSE 81 MG/DL (70-104); SODIUM 140 MMOL/L (135-145); TOTAL CARBON DIOXIDE 22.3 MMOL/L (24-32); TOTAL PROTEIN 7.1 G/DL (6.4-8.2); eGFR 66 ML/MIN
[2020-08-04] MEDS ORDERED: ringers solution, lacted 1,000 ML IV SCH (15:30)
[2020-08-04] MEDS ORDERED: fentaNYL/PF 50MCG/1 ML 2ML syringe IV PRN ×2 (15:30)
[2020-08-04] MEDS ORDERED: HYDROmorphone/PF 0.2 MG/ML SYRINGE IV PRN (15:30)
[2020-08-04] MEDS ORDERED: labetalol 20mg/4ml (5mg/ml) syringe IV PRN (15:30)
[2020-08-04] MEDS ORDERED: hydrALAZINE 20mg/ml inj. IV PRN (15:30)
[2020-08-04 15:40] LABS: ALBUMIN 1.8 G/DL (3.4-5.0); ALBUMIN/GLOBULIN RATIO 0.3 (1.1-1.5); POTASSIUM 4.2 MMOL/L (3.5-5.1)
[2020-08-04] MEDS ORDERED: clindamycin phosphate 150mg/ml inj. ONE (15:54)
[2020-08-04] MEDS ORDERED: sevoflurane 250ml liquid IH ONE (15:55)
[2020-08-04 16:00] LABS: TOTAL CELLS COUNTED 100
[2020-08-04 16:01] LABS: GIANT PLATELET FEW; PLATELET ESTIMATE INCREASED
[2020-08-04] MEDS ORDERED: LIDOcaine 2% (20mg/ml) 5ml vial ONE ×2 (16:01→16:05)
[2020-08-04] MEDS ORDERED: propofol inj 20 ML IV ONE (16:01)
[2020-08-04] MEDS ORDERED: fentaNYL/PF 50MCG/1 ML 2ML syringe ONE (16:06)
[2020-08-04] MEDS ORDERED: midazolam 1 mg/ML 2ml injection ONE (16:06)
[2020-08-04] MEDS ORDERED: dexamethasone sod phosphate 4mg/ml inj. ONE (16:07)
--- NOTE | 2020-08-04 16:40 | NUR ---
Received from OR via BED, accompanied by Anesthesiologist DR MARCANO and report given by Anesthesiologist, PATIENT STILL SLEEPY, DENIES PAIN, V/S WNL, CSM INTACT, ABDOMEN WOUND VAC-CDI WITH MINIMAL OUTPUT AT THIS TIME, NOTED TO HAVE SMALL SUPERFICIAL WOUND ABOVE WOUND VAC - NO DRAINAGE, OPEN TO AIR-PER DR STEEN, SCD ON, 20G PIV TO JUVE.
[2020-08-04] MEDS: HYDROmorphone/PF 0.2 MG/ML SYRINGE IV PRN ×2 (17:37→21:06)
--- NOTE | 2020-08-04 18:00 | NUR ---
PT A/OX4, SOME PAIN IN ABD AREA-DILAUDID HELPED, WOUND VAC ATTACHED AND RUNNING AT 125MMHG LOW SXN, VS-STABLE, PT ON 2LTRS O2, NS AT 100ML/HR TO PIV 20G IN LWRIST, SCDS ON, SPOKE WITH DAUGHTER - PT HAS A HX OF CDIFF THAT LEAD TO LG ABD SX AND OSTOMY, ALSO RECENTLY HAD HERNIA REPAIR AND HAS BEEN WORKING WITH WOUND FROM SX FOR AWHILE, ACCORDING TO DAUGHTER, PT HAD LOST A LOT OF BLOOD FROM WOUND SITE BEFORE COMING TO ER, NOTED OT HAVE LOW H/H, PT ALSO HAS HX OF SEVERE ANXIETY WHEN IN THE HOSPITAL. REPORT GIVEN TO ADRIEL ALLEN ON SURGICAL FLOOR. PT TAKEN TO RM 350B WITH ALL BELONGINGS. MONITORS ATTACHED, CALL LIGHT IN REACH, BED LOW AND LOCKED.
[2020-08-04 19:46] LABS: PARTIAL THROMBOPLASTIN TIME 30 SECONDS (22-32)
[2020-08-04] MEDS: K and/or MAG REPLACEMENT MC SCH (20:00)
--- NOTE | 2020-08-04 23:55 | NUR ---
WRONG ENTRY Addendum: 08/04/20 at 2356 by Brooklyn May RN Amended: Links added.
[2020-08-05 00:07] VITALS: BP 120/76
[2020-08-05] MEDS: HYDROmorphone inj. 0.5 MG/0.5 ML DISP.SYRIN IV PRN ×5 (02:15→23:56)
--- NOTE | 2020-08-05 02:23 | NUR ---
PAGED DOCTOR TWICE. PATIENT HAS BEEN REQUESTING FOR AN ADDITIONAL PAIN MEDICATION SINCE DILAUDID IS NOT HELPING.
--- NOTE | 2020-08-05 02:27 | NUR ---
MD STATES NO ORDERS UNTIL DAY SHIFT HOSPITALIST. NO DIET ORDERS GIVEN
[2020-08-05 04:00] VITALS: BP 127/69
--- NOTE | 2020-08-05 06:25 | NUR ---
Patient in room ISMAEL 350. I have received report from Brooklyn ALLEN and had the opportunity to ask questions and assume patient care.
--- NOTE | 2020-08-05 06:42 | NUR ---
Patient in room ISMAEL 350. I have received report from TIFFANY Barahona and had the opportunity to ask questions and assume patient care.
[2020-08-05 07:00] VITALS: BP 112/64
[2020-08-05 07:16] VITALS: BP 112/64
[2020-08-05] MEDS: apixaban 5mg tablet PO SCH ×2 (07:37→20:50)
[2020-08-05] MEDS: lisinopril 10 MG tablet PO SCH (07:38)
[2020-08-05] MEDS: multivitamins, therapeutics tablet PO SCH (07:38)
[2020-08-05 07:46] LABS: HEMATOCRIT 26.6 % (35.0-45.0); HEMOGLOBIN 8.4 g/dl (12.0-16.0); LYMPHOCYTES # (AUTO) 1.3 X10'3 (1.1-4.8); LYMPHOCYTES % (AUTO) 7.9 % (21-51); MEAN CORPUSCULAR HGB CONC 31.6 g/dL (33.0-36.5); MEAN PLATELET VOLUME 6.8 FL (7.4-10.4); MONOCYTES # (AUTO) 0.7 X10'3 (0-0.9)
[2020-08-05 07:48] LABS: BASOPHILS # (AUTO) 0.1 X10'3 (0-0.2); BASOPHILS % (AUTO) 0.4 % (0-1); EOSINOPHILS % (AUTO) 0.1 % (0-6); MEAN CORPUSCULAR HEMOGLOBIN 29.1 PG (27.0-31.0); MONOCYTES % (AUTO) 4.3 % (2-12); NEUTROPHILS # (AUTO) 14.2 X10'3 (1.8-7.7); NEUTROPHILS % (AUTO) 87.3 % (42-75); PLATELET COUNT 729 X10'3 (140-440); RED CELL DISTRIBUTION WIDTH 16.1 % (11.5-14.5); WHITE BLOOD COUNT 16.2 X10'3 (4.5-11.0)
[2020-08-05] MEDS: levoTHYROXINE 88mcg tablet PO SCH (07:51)
[2020-08-05 07:56] LABS: ALBUMIN 2.1 G/DL (3.4-5.0); ANION GAP 11 (8-16); BLOOD UREA NITROGEN 13 MG/DL (7-18); BUN/CREATININE RATIO 15.7 (6.6-38.0); CALCIUM 9.3 MG/DL (8.5-10.1); CHLORIDE 108 MMOL/L (99-107); CREATININE 0.83 MG/DL (0.40-0.90); GLUCOSE 116 MG/DL (70-104); MAGNESIUM 2.1 MG/DL (1.5-2.4); POTASSIUM 4.5 MMOL/L (3.5-5.1); SODIUM 142 MMOL/L (135-145); TOTAL CARBON DIOXIDE 22.6 MMOL/L (24-32); eGFR 69 ML/MIN
[2020-08-05] MEDS: K and/or MAG REPLACEMENT MC SCH ×2 (08:00→20:00)
[2020-08-05 08:54] LABS: ANISOCYTOSIS 1+; HYPOCHROMASIA 1+; PLATELET ESTIMATE INCREASED; TOTAL CELLS COUNTED 100
[2020-08-05] MEDS: normal saline 1000ml 1,000 ML IV SCH (10:06)
[2020-08-05 11:00] VITALS: BP 118/73
[2020-08-05 13:38] LABS: C DIFF ANTIGEN NEGATIVE (NEGATIVE); C DIFF SPECIMEN=DIARRHEA? ACCEPTABLE; C DIFFICILE TOXINS A&B NEGATIVE (Neg)
[2020-08-05] MEDS: HYDROcodone/acetaminophen 10/325mg tab PO PRN ×2 (13:59→20:50)
--- NOTE | 2020-08-05 17:16 | NUR ---
Wound/Malnutrition consult: Pt s/p I&D of abdominal wound with VAC placement. RD manager internship met with patient at bedside for written/verbal high protein education with RD contact information provided. Pt was knowledgeable in what foods to eat and denied any questions for RD manager internship. Pt reports wanting menu preferences taken, d/w dietary for her to receive menu on breakfast tray. Visualized patient, did not appear to have muscle/fat wasting. Noted normal muscle strength and no edema per EMR. Noted 5% non-severe wt loss in 5 months per scaled wt history in EMR. Pt PO intake average 75-100% on regular diet. Pt lacks a minimum of two criteria for malnutrition. Will continue to follow. Addendum: 08/05/20 at [address] Amended: Links added. Addendum: 08/05/20 at [address] I have reviewed and agree with note by Service Developer. Deandra Rendon RD
[2020-08-05 18:00] VITALS: BP 102/53
--- NOTE | 2020-08-05 18:15 | NUR ---
Problems reprioritized. Patient report given, questions answered & plan of care reviewed with Prudence RN.
--- NOTE | 2020-08-05 19:04 | NUR ---
Patient in room ISMAEL 350. I have received report from TIFFANY Oreilly and had the opportunity to ask questions and assume patient care. Addendum: 08/05/20 at 1905 by Paige Cardenas - Student SIRISHA Amended: Links added.
--- NOTE | 2020-08-05 19:20 | NUR ---
Patient in room ISMAEL 350. I have received report from VENTURA ALLEN and had the opportunity to ask questions and assume patient care.
[2020-08-05] MEDS: clindamycin 600mg/D5W 50ml 50 ML IV SCH (20:52)
[2020-08-06 00:12] VITALS: BP 99/55
--- NOTE | 2020-08-06 05:34 | NUR ---
Student documentation: I have reviewed and agree with all interventions, assessments performed and documented by BRADLEY STUDENT.
--- NOTE | 2020-08-06 05:35 | NUR ---
Student Medication Administration: For this medication-pass time frame, all medication were reviewed, dispensed, administered and documented per hospital policy by SUNLAND PARKIGOR MANCINI.
--- NOTE | 2020-08-06 06:29 | NUR ---
Problems reprioritized. Patient report given, questions answered & plan of care reviewed with BEAU RN.
--- NOTE | 2020-08-06 06:51 | NUR ---
Patient in room ISMAEL 350. I have received report from Brooklyn ALLEN and had the opportunity to ask questions and assume patient care.
[2020-08-06 07:07] LABS: BASOPHILS # (AUTO) 0.1 X10'3 (0-0.2); EOSINOPHILS # (AUTO) 0.2 X10'3 (0-0.9); HEMOGLOBIN 7.7 g/dl (12.0-16.0); MEAN CORPUSCULAR HEMOGLOBIN 29.8 PG (27.0-31.0); MEAN PLATELET VOLUME 6.6 FL (7.4-10.4)
[2020-08-06 07:09] LABS: BASOPHILS % (AUTO) 0.7 % (0-1); EOSINOPHILS % (AUTO) 1.9 % (0-6); HEMATOCRIT 23.6 % (35.0-45.0); LYMPHOCYTES # (AUTO) 2.5 X10'3 (1.1-4.8); LYMPHOCYTES % (AUTO) 22.9 % (21-51); MEAN CORPUSCULAR HGB CONC 32.4 g/dL (33.0-36.5); MEAN CORPUSCULAR VOLUME 91.9 FL (78-98); MONOCYTES # (AUTO) 0.7 X10'3 (0-0.9); MONOCYTES % (AUTO) 6.6 % (2-12); NEUTROPHILS # (AUTO) 7.4 X10'3 (1.8-7.7); NEUTROPHILS % (AUTO) 67.9 % (42-75); PLATELET COUNT 734 X10'3 (140-440); RED BLOOD COUNT 2.57 X10'6 (4.20-5.60); RED CELL DISTRIBUTION WIDTH 15.7 % (11.5-14.5); WHITE BLOOD COUNT 10.8 X10'3 (4.5-11.0)
[2020-08-06 07:24] LABS: ALBUMIN 1.9 G/DL (3.4-5.0); ANION GAP 11 (8-16); BLOOD UREA NITROGEN 21 MG/DL (7-18); BUN/CREATININE RATIO 22.8 (6.6-38.0); CALCIUM 9.2 MG/DL (8.5-10.1); CHLORIDE 111 MMOL/L (99-107); CREATININE 0.92 MG/DL (0.40-0.90); GLUCOSE 110 MG/DL (70-104); MAGNESIUM 1.9 MG/DL (1.5-2.4); POTASSIUM 3.9 MMOL/L (3.5-5.1); SODIUM 146 MMOL/L (135-145); TOTAL CARBON DIOXIDE 23.9 MMOL/L (24-32); eGFR 61 ML/MIN
[2020-08-06 08:00] VITALS: BP 108/63
[2020-08-06] MEDS: K and/or MAG REPLACEMENT MC SCH ×2 (08:00→19:51)
[2020-08-06] MEDS: clindamycin 600mg/D5W 50ml 50 ML IV SCH ×2 (08:03→19:55)
[2020-08-06] MEDS: apixaban 5mg tablet PO SCH ×2 (08:04→19:55)
[2020-08-06] MEDS: lisinopril 10 MG tablet PO SCH (08:04)
[2020-08-06] MEDS: levoTHYROXINE 88mcg tablet PO SCH (08:04)
[2020-08-06] MEDS: multivitamins, therapeutics tablet PO SCH (08:04)
[2020-08-06 08:26] LABS: NUCLEATED RED BLOOD CELLS 1 /100WBC (0-0); TOTAL CELLS COUNTED 100
[2020-08-06 08:27] LABS: ANISOCYTOSIS 1+; HYPOCHROMASIA 1+; PLATELET ESTIMATE INCREASED; ROULEAUX 1+
[2020-08-06 08:29] LABS: POLYCHROMASIA 1+
[2020-08-06] MEDS: HYDROcodone/acetaminophen 10/325mg tab PO PRN ×2 (09:22→19:54)
[2020-08-06 11:00] VITALS: BP 116/59
[2020-08-06] MEDS: HYDROmorphone inj. 0.5 MG/0.5 ML DISP.SYRIN IV PRN ×2 (16:40→22:04)
--- NOTE | 2020-08-06 18:23 | NUR ---
Patient in room ISMAEL 350. I have received report from BEAU ALLEN and had the opportunity to ask questions and assume patient care.
--- NOTE | 2020-08-06 18:27 | NUR ---
Patient in room ISMAEL 350. I have received report from TIFFANY Vazquez and had the opportunity to ask questions and assume patient care. Addendum: 08/06/20 at 1827 by Paige Cardenas - Student SIRISHA Amended: Links added.
--- NOTE | 2020-08-06 18:53 | NUR ---
Problems reprioritized. Patient report given, questions answered & plan of care reviewed with PRUDENCE RN.
[2020-08-06 20:00] VITALS: BP 130/76
[2020-08-06] MEDS: normal saline 1000ml 1,000 ML IV SCH (20:37)
[2020-08-07] VITALS: BP 132/78
[2020-08-07] MEDS: HYDROcodone/acetaminophen 10/325mg tab PO PRN ×5 (00:14→21:55)
--- NOTE | 2020-08-07 03:49 | NUR ---
Student documentation: I have reviewed and agree with all interventions, assessments performed and documented by BRADLEY STUDENT.
--- NOTE | 2020-08-07 03:50 | NUR ---
Student Medication Administration: For this medication-pass time frame, all medication were reviewed, dispensed, administered and documented per hospital policy by BRADLEY (STUDENT).
--- NOTE | 2020-08-07 06:12 | NUR ---
Problems reprioritized. Patient report given, questions answered & plan of care reviewed with TIFFANY Vazquez. Addendum: 08/07/20 at 0613 by aPige Cardeans - Wili GRIMM Amended: Links added.
--- NOTE | 2020-08-07 06:26 | NUR ---
Problems reprioritized. Patient report given, questions answered & plan of care reviewed with BEAU RN.
[2020-08-07 06:32] LABS: BASOPHILS # (AUTO) 0.1 X10'3 (0-0.2); BASOPHILS % (AUTO) 0.8 % (0-1); EOSINOPHILS # (AUTO) 0.4 X10'3 (0-0.9); MEAN PLATELET VOLUME 6.7 FL (7.4-10.4); NEUTROPHILS # (AUTO) 7.6 X10'3 (1.8-7.7); RED CELL DISTRIBUTION WIDTH 15.9 % (11.5-14.5)
[2020-08-07 06:34] LABS: EOSINOPHILS % (AUTO) 3.8 % (0-6); HEMATOCRIT 28.3 % (35.0-45.0); HEMOGLOBIN 9.1 g/dl (12.0-16.0); LYMPHOCYTES # (AUTO) 2.2 X10'3 (1.1-4.8); LYMPHOCYTES % (AUTO) 19.9 % (21-51); MEAN CORPUSCULAR HEMOGLOBIN 29.4 PG (27.0-31.0); MEAN CORPUSCULAR VOLUME 91.8 FL (78-98); MONOCYTES # (AUTO) 0.8 X10'3 (0-0.9); MONOCYTES % (AUTO) 7.1 % (2-12); NEUTROPHILS % (AUTO) 68.4 % (42-75); PLATELET COUNT 819 X10'3 (140-440); RED BLOOD COUNT 3.08 X10'6 (4.20-5.60); WHITE BLOOD COUNT 11.1 X10'3 (4.5-11.0)
[2020-08-07 06:51] LABS: ANION GAP 11 (8-16); BLOOD UREA NITROGEN 17 MG/DL (7-18); BUN/CREATININE RATIO 17.9 (6.6-38.0); CALCIUM 9.5 MG/DL (8.5-10.1); CHLORIDE 105 MMOL/L (99-107); CREATININE 0.95 MG/DL (0.40-0.90); GLUCOSE 87 MG/DL (70-104); MAGNESIUM 1.9 MG/DL (1.5-2.4); POTASSIUM 4.1 MMOL/L (3.5-5.1); SODIUM 143 MMOL/L (135-145); TOTAL CARBON DIOXIDE 27.4 MMOL/L (24-32); eGFR 59 ML/MIN
[2020-08-07] MEDS: K and/or MAG REPLACEMENT MC SCH ×2 (08:00→20:00)
[2020-08-07] MEDS: apixaban 5mg tablet PO SCH ×2 (08:05→20:17)
[2020-08-07] MEDS: multivitamins, therapeutics tablet PO SCH (08:06)
[2020-08-07] MEDS: lisinopril 10 MG tablet PO SCH (08:06)
[2020-08-07] MEDS: levoTHYROXINE 88mcg tablet PO SCH (08:06)
[2020-08-07] MEDS: clindamycin 600mg/D5W 50ml 50 ML IV SCH ×2 (08:08→20:17)
[2020-08-07 08:11] VITALS: BP 110/61
[2020-08-07 08:36] LABS: TOTAL CELLS COUNTED 100
[2020-08-07 08:37] LABS: HYPOCHROMASIA 1+; PLATELET ESTIMATE INCREASED; POLYCHROMASIA 1+; ROULEAUX 1+
--- NOTE | 2020-08-07 18:18 | NUR ---
Problems reprioritized. Patient report given, questions answered & plan of care reviewed with Stacey ALLEN.
--- NOTE | 2020-08-07 18:30 | NUR ---
Patient in room ISMAEL 350. I have received report from BEAU and had the opportunity to ask questions and assume patient care.
[2020-08-07 19:00] VITALS: BP 124/54
[2020-08-07] MEDS: lactobacillus rhamnosus 10,000 MMU CELLS/CAPSULE PO SCH (20:17)
[2020-08-07 23:00] VITALS: BP 118/73
[2020-08-07] MEDS: HYDROmorphone inj. 0.5 MG/0.5 ML DISP.SYRIN IV PRN (23:47)
[2020-08-08] MEDS: HYDROcodone/acetaminophen 10/325mg tab PO PRN ×2 (05:19→14:42)
--- NOTE | 2020-08-08 06:00 | NUR ---
Problems reprioritized. Patient report given, questions answered & plan of care reviewed with BEAU.
[2020-08-08 06:21] LABS: BASOPHILS # (AUTO) 0.1 X10'3 (0-0.2); EOSINOPHILS # (AUTO) 0.4 X10'3 (0-0.9); HEMOGLOBIN 9.4 g/dl (12.0-16.0); MEAN PLATELET VOLUME 6.5 FL (7.4-10.4); RED CELL DISTRIBUTION WIDTH 15.9 % (11.5-14.5)
[2020-08-08 06:24] LABS: BASOPHILS % (AUTO) 1.1 % (0-1); LYMPHOCYTES # (AUTO) 2.1 X10'3 (1.1-4.8); LYMPHOCYTES % (AUTO) 19.7 % (21-51); MEAN CORPUSCULAR HEMOGLOBIN 29.9 PG (27.0-31.0); MEAN CORPUSCULAR HGB CONC 33.4 g/dL (33.0-36.5); MEAN CORPUSCULAR VOLUME 89.4 FL (78-98); MONOCYTES # (AUTO) 0.8 X10'3 (0-0.9); MONOCYTES % (AUTO) 7.2 % (2-12); NEUTROPHILS # (AUTO) 7.4 X10'3 (1.8-7.7); PLATELET COUNT 862 X10'3 (140-440); RED BLOOD COUNT 3.13 X10'6 (4.20-5.60); WHITE BLOOD COUNT 10.9 X10'3 (4.5-11.0)
[2020-08-08 06:28] LABS: ANION GAP 11 (8-16); BLOOD UREA NITROGEN 16 MG/DL (7-18); CALCIUM 9.4 MG/DL (8.5-10.1); CHLORIDE 103 MMOL/L (99-107); CREATININE 0.94 MG/DL (0.40-0.90); GLUCOSE 102 MG/DL (70-104); MAGNESIUM 1.8 MG/DL (1.5-2.4); POTASSIUM 4.2 MMOL/L (3.5-5.1); SODIUM 141 MMOL/L (135-145); TOTAL CARBON DIOXIDE 26.8 MMOL/L (24-32); eGFR 60 ML/MIN
[2020-08-08 07:43] VITALS: BP 129/75
[2020-08-08] MEDS: K and/or MAG REPLACEMENT MC SCH (08:00)
[2020-08-08] MEDS: multivitamins, therapeutics tablet PO SCH (08:49)
[2020-08-08] MEDS: levoTHYROXINE 88mcg tablet PO SCH (08:49)
[2020-08-08] MEDS: apixaban 5mg tablet PO SCH (08:49)
[2020-08-08] MEDS: lactobacillus rhamnosus 10,000 MMU CELLS/CAPSULE PO SCH (08:49)
[2020-08-08] MEDS: lisinopril 10 MG tablet PO SCH (08:50)
[2020-08-08] MEDS: clindamycin 600mg/D5W 50ml 50 ML IV SCH (08:50)
[2020-08-08] MEDS: HYDROmorphone inj. 0.5 MG/0.5 ML DISP.SYRIN IV PRN (09:08)
[2020-08-08 11:33] VITALS: BP 131/75
--- NOTE | 2020-08-08 16:15 | NUR ---
PT DISCHARGED. PT WAS PROVIDED EDUCATION ABOUT DIAGNOSIS AND TREATMENT PLAN. FOLLOWUP APPOINTMENT AND VISIT WITH PCP INITIATED AND ACKNOWLEDGED BY PT. PT WAS WALKED THROUGH PROCESS HOW TO USE PORTABLE WOUND CARE VAC. SHE WAS PROVIDED DOCUMENTATION ABOUT WHAT MEDICATIONS SHE WAS ON AND TO CONTINUE WHEN SHE GETS HOME. PT WAS ALSO EDUCATED ABOUT PAIN MGMT TECHNIQUES AND GOALS. SHE WAS WHEELED OUT ON A WHEELCHAIR WITH HER BELONGINGS. SON IN LAW CAME TO PICK HER UP. LEFT IV REMOVED DURING DISCHARGE PLANNING AND EDUCATION.
--- NOTE | 2020-08-08 17:47 | NUR ---
Student documentation: I have reviewed and agree with all interventions, assessments performed and documented by Mariano ALLEN.
== END 2020-08-08 15:13 | disposition home health service (06) | DRG 711 ==
LOC: ER 12:58 → ED HOLD 13:59 → PACU 15:44 → SUR 3N 18:27
PROVIDERS: ADMIT Internal Medicine; ATTEND Internal Medicine
PROC: 0W9F0ZZ Drainage of Abdominal Wall, Open Approach (ICD-10-PCS; principal; 2020-08-04 15:55)
DX: T81.42XA Infection following a procedure, deep incisional surgical site, initial encounter (principal); D64.9 Anemia, unspecified; E03.9 Hypothyroidism, unspecified; L02.211 Cutaneous abscess of abdominal wall; I10 Essential (primary) hypertension; K65.1 Peritoneal abscess; Y83.8 Other surgical procedures as the cause of abnormal reaction of the patient, or of later complication, without mention of misadventure at the time of the procedure; L08.9 Local infection of the skin and subcutaneous tissue, unspecified; Z79.01 Long term (current) use of anticoagulants; Z79.899 Other long term (current) drug therapy; Z86.19 Personal history of other infectious and parasitic diseases; Z78.9 Other specified health status; Z88.8 Allergy status to other drugs, medicaments and biological substances; Z80.1 Family history of malignant neoplasm of trachea, bronchus and lung; Y92.89 Other specified places as the place of occurrence of the external cause
CPT/HCPCS: 36415; 80048; 80053; 83735; 84443; 85007; 85025; 85730; 86885; 86900; 86901; 87081; 87324; 87449; 93005; 99285; A4618; A6550; A7000; G0378; J1100; J1170; J2001; J2250; J2704; J3010; J3490; J7030

== ENCOUNTER 2021-02-15 07:37 | Inpatient (IN) | payer MEDICAID ==
[2021-02-10 13:46] LABS: BASOPHILS # (AUTO) 0.1 X10'3 (0-0.2); BASOPHILS % (AUTO) 0.8 % (0-1); EOSINOPHILS # (AUTO) 0.1 X10'3 (0-0.9); EOSINOPHILS % (AUTO) 1.8 % (0-6); LYMPHOCYTES # (AUTO) 2.4 X10'3 (1.1-4.8); LYMPHOCYTES % (AUTO) 31.1 % (21-51); MEAN CORPUSCULAR HEMOGLOBIN 30.8 PG (27.0-31.0); MEAN CORPUSCULAR HGB CONC 32.9 g/dL (33.0-36.5); MEAN CORPUSCULAR VOLUME 93.6 FL (78-98); MEAN PLATELET VOLUME 7.1 FL (7.4-10.4); MONOCYTES # (AUTO) 0.7 X10'3 (0-0.9); MONOCYTES % (AUTO) 9.2 % (2-12); NEUTROPHILS # (AUTO) 4.4 X10'3 (1.8-7.7); NEUTROPHILS % (AUTO) 57.1 % (42-75); PRE OP HEMATOCRIT 40.6 % (35.0-45.0); PRE OP HEMOGLOBIN 13.4 g/dL (12.0-16.0); PRE OP PLATELET COUNT 352 X10'3 (140-440); RED BLOOD COUNT 4.34 X10'6 (4.20-5.60); RED CELL DISTRIBUTION WIDTH 15.7 % (11.5-14.5)
[2021-02-10 14:07] LABS: CLARITY,URINE CLEAR (Clear); COLOR,URINE YELLOW (Yellow); GLUCOSE, URINE NEGATIVE (Neg); KETONES,URINE NEGATIVE (Neg); PROTEIN,URINE NEGATIVE (Neg); UA COLLECTION TYPE CLN CATCH MIDSTREAM
[2021-02-10 14:08] LABS: LEUKOCYTE ESTERASE ,URINE NEGATIVE (Neg); NITRITES, URINE NEGATIVE (Neg); OCCULT BLOOD,URINE TRACE-LYSED (Neg); UROBILINOGEN,URINE 0.2 E.U/dL (0.2-1.0); WBC,URINE 0-4 /HPF (0-4)
[2021-02-10 14:09] LABS: BACTERIA,URINE 1+ /HPF (Neg); MUCUS STRANDS MODERATE /LPF (Neg); RBC,URINE 0-2 /HPF (0-2); SQUAMOUS EPITHELIAL CELL,UR MODERATE /LPF (FEW); YEAST FEW /HPF (NEGATIVE)
[2021-02-10 14:31] LABS: ALBUMIN 3.6 G/DL (3.4-5.0); ALBUMIN/GLOBULIN RATIO 1.1 (1.1-1.5); ALKALINE PHOSPHATASE 97 IU/L (46-116); BLOOD UREA NITROGEN 20 MG/DL (7-18); BUN/CREATININE RATIO 18.3 (6.6-38.0); CALCIUM 8.8 MG/DL (8.5-10.1); CHLORIDE 107 MMOL/L (99-107); CREATININE 1.09 MG/DL (0.40-0.90); PRE OP ALT 29 U/L (30-65); PRE OP ANION GAP 11 (8-16); PRE OP AST 21 U/L (10-37); PRE OP BILIRUB, TOTAL 0.2 MG/DL (0.0-1.0); PRE OP GLUCOSE 106 MG/DL (70-104); PRE OP POTASSIUM 3.9 MMOL/L (3.4-5.1); PRE OP SODIUM 142 MMOL/L (135-145); TOTAL CARBON DIOXIDE 24.2 MMOL/L (24-32); eGFR 51 ML/MIN
[2021-02-15] VITALS (21 sets, daily range): BP systolic 138–173; BP diastolic 71–105
[~2021-02-15] VITALS: Ht 167.6 cm; Wt 109.2 kg
[~2021-02-15 07:37] MED LIST changes: -APIX5TAB3 PO; +BREX1TAB PO; -BUPR300T86 PO; +BUPR75TA8 PO; +DET2LAC PO; -LISI10TA27 PO; +LORA-269 PO; -MIRT45TA83 PO; -MULT-1085 PO; +cefazolin/dext.iso 2gm/100ml IV ONE; +famotidine 20mg tablet PO ONE
[2021-02-15] MEDS ORDERED: meperidine/PF 25mg/ml syringe IV PRN ×3 (08:15)
[2021-02-15] MEDS ORDERED: ringers solution, lacted 1,000 ML IV SCH (08:15)
[2021-02-15] MEDS ORDERED: proCHLORperazine 10 MG/2 ml inj IV PRN (08:15)
[2021-02-15] MEDS ORDERED: ondansetron/PF 4mg/2ml inj IV PRN ×2 (08:15→17:50)
[2021-02-15] MEDS: ringers solution, lacted 1,000 ML IV SCH (09:27)
[2021-02-15] MEDS ORDERED: diazepam 5mg tablet PO ONE (10:15)
[2021-02-15] MEDS ORDERED: BUPIVAcaine/PF 2.5mg/ml (0.25%) 10ml vial ONE (12:03)
[2021-02-15] MEDS ORDERED: fentaNYL /PF 50mcg/ml 5ml ampule ONE (12:22)
[2021-02-15] MEDS ORDERED: midazolam 1 mg/ML 2ml injection ONE (12:22)
[2021-02-15] MEDS ORDERED: BUPIVAcaine 0.5% inj/PF 30 ML ONE (12:23)
[2021-02-15] MEDS ORDERED: BUPIVACAINE liposomal/PF 13.3 MG/ML vial IM ONE (12:23)
[2021-02-15] MEDS ORDERED: rocuronium 10mg/ml inj IV ONE ×2 (12:24→13:39)
[2021-02-15] MEDS ORDERED: LIDOcaine 2% (20mg/ml) 5ml vial ONE (12:56)
[2021-02-15] MEDS ORDERED: 0.9 % SODIUM CHLORIDE 10 ML VIAL ONE (12:59)
[2021-02-15] MEDS ORDERED: ondansetron/PF 4mg/2ml inj ONE (12:59)
[2021-02-15] MEDS ORDERED: propofol inj 20 ML IV ONE (12:59)
[2021-02-15] MEDS ORDERED: ePHEDrine 50MG/ML INJ. ONE (13:00)
[2021-02-15] MEDS ORDERED: acetaminophen 1,000mg/100ml IV 100 ML IV ONE (13:39)
[2021-02-15] MEDS ORDERED: meperidine/PF 50mg/ml syringe ONE (15:28)
[2021-02-15] MEDS ORDERED: ceFAZolin 1000mg inj ONE (17:01)
[2021-02-15] MEDS ORDERED: vancomycin 1,000mg inj ONE (17:01)
[2021-02-15] MEDS ORDERED: bacitracin 15gm ointment TP ONE (17:01)
--- NOTE | 2021-02-15 17:24 | NUR ---
Received from OR via , accompanied by Anesthesiologist DR MOORE and report given by Anesthesiolgist. PT PRESENTS WITH 20G LEFT FOREARM. ABD DRESSING DRY AND INTACT. VSS. Addendum: 02/15/21 at 1737 by Becca Caldwell RN, RN Amended: Links added.
[2021-02-15] MEDS ORDERED: naloxone 0.4 mg/ml inj IV PRN (17:50)
[2021-02-15] MEDS ORDERED: acetaminophen 325mg tablet PO PRN ×2 (17:50)
[2021-02-15] MEDS ORDERED: BUPR300T86 PO (18:27)
[2021-02-15] MEDS ORDERED: APIX5TAB3 PO (18:27)
[2021-02-15] MEDS: HYDROmorph./NS 0.2 mg/ml CADD 100 ML IV SCH ×4 (18:39→23:00)
--- NOTE | 2021-02-15 18:54 | NUR ---
Patient in room . I have received report from Becca contract associate manager and had the opportunity to ask questions and assume patient care.
--- NOTE | 2021-02-15 19:04 | NUR ---
PATIENT TAKEN TO ROOM WITH ALL BELONGINGS AND HOOKED UP TO MONITORS IN ROOM AND GIVEN CALL LIGHT, REPORT GIVEN TO COLLIN ALLEN WHO HAS TAKEN OVER PATIENT CARE. Addendum: 02/15/21 at 1928 by Becca Caldwell RN, RN Amended: Links added.
[2021-02-15] MEDS: topiramate 25mg tablet PO SCH (20:57)
[2021-02-15] MEDS: apixaban 5mg tablet PO SCH (20:57)
[2021-02-15] MEDS: buPROPion SR 150mg tablet PO SCH (20:58)
[2021-02-15] MEDS: tolterodine 2mg SR capsule (24hr) PO SCH (21:51)
[2021-02-16] VITALS: BP 148/103
[2021-02-16] MEDS: HYDROmorph./NS 0.2 mg/ml CADD 100 ML IV SCH ×12 (01:00→23:00)
[2021-02-16 04:26] VITALS: BP 118/65
--- NOTE | 2021-02-16 06:33 | NUR ---
Problems reprioritized. Patient report given, questions answered & plan of care reviewed with TIFFANY Campbell.
[2021-02-16 07:00] VITALS: BP 117/62
[2021-02-16] MEDS: buPROPion SR 150mg tablet PO SCH ×2 (09:53→21:08)
[2021-02-16] MEDS: ringers solution, lacted 1,000 ML IV SCH (09:53)
[2021-02-16] MEDS: apixaban 5mg tablet PO SCH ×2 (09:53→21:08)
[2021-02-16] MEDS: levoTHYROXINE 88mcg tablet PO SCH (09:54)
[2021-02-16 11:00] VITALS: BP 119/63
[2021-02-16 19:00] VITALS: BP 116/67
--- NOTE | 2021-02-16 19:52 | NUR ---
Problems reprioritized. Patient report given, questions answered & plan of care reviewed with TIFFANY WINTERS.
[2021-02-16] MEDS: tolterodine 2mg SR capsule (24hr) PO SCH (21:08)
[2021-02-16] MEDS: topiramate 25mg tablet PO SCH (21:09)
[2021-02-17] VITALS: BP 124/67
[2021-02-17] MEDS: HYDROmorph./NS 0.2 mg/ml CADD 100 ML IV SCH ×12 (01:00→23:00)
--- NOTE | 2021-02-17 07:11 | NUR ---
I have received report from Neeraj ALLEN Travel Nurse and had the opportunity to ask questions and assume patient care.
[2021-02-17] MEDS: apixaban 5mg tablet PO SCH ×2 (07:37→21:08)
[2021-02-17] MEDS: levoTHYROXINE 88mcg tablet PO SCH (07:38)
[2021-02-17] MEDS: buPROPion SR 150mg tablet PO SCH ×2 (07:38→21:10)
--- NOTE | 2021-02-17 07:55 | NUR ---
rounded and gave order for Lovenox SQ 60 QD. Primary RN, Elaine, discussed order w/ pharmacy d/t pt receives daily Eliquis. Rx stated Lovenox is not advised.
[2021-02-17 08:00] VITALS: BP 125/67
[2021-02-17 11:00] VITALS: BP 123/74
--- NOTE | 2021-02-17 15:19 | NUR ---
Student documentation: I have reviewed all interventions, assessments performed and documented by Vinny GRIFFITH from [facility]. Student Medication Administration: For all medication-pass' in the time frame of 5422-2647, all medication were reviewed, dispensed, administered and documented per hospital policy by Vinny GRIFFITH from [facility]..
[2021-02-17 18:00] VITALS: BP 139/86
[2021-02-17] MEDS: tolterodine 2mg SR capsule (24hr) PO SCH (21:08)
[2021-02-17] MEDS: topiramate 25mg tablet PO SCH (21:08)
[2021-02-18] VITALS (7 sets, daily range): BP systolic 115–171; BP diastolic 67–94
[2021-02-18] MEDS: HYDROmorph./NS 0.2 mg/ml CADD 100 ML IV SCH ×12 (01:00→23:00)
[2021-02-18 07:28] LABS: BASOPHILS % (AUTO) 0.3 % (0-1); EOSINOPHILS # (AUTO) 0.1 X10'3 (0-0.9); EOSINOPHILS % (AUTO) 0.6 % (0-6); HEMATOCRIT 31.7 % (35.0-45.0); HEMOGLOBIN 10.7 g/dl (12.0-16.0); LYMPHOCYTES # (AUTO) 2.1 X10'3 (1.1-4.8); LYMPHOCYTES % (AUTO) 15.2 % (21-51); MEAN CORPUSCULAR HEMOGLOBIN 31.6 PG (27.0-31.0); MEAN CORPUSCULAR HGB CONC 33.9 g/dL (33.0-36.5); MEAN CORPUSCULAR VOLUME 93.1 FL (78-98); MEAN PLATELET VOLUME 7.4 FL (7.4-10.4); MONOCYTES # (AUTO) 1.4 X10'3 (0-0.9); MONOCYTES % (AUTO) 10.5 % (2-12); NEUTROPHILS # (AUTO) 9.9 X10'3 (1.8-7.7); NEUTROPHILS % (AUTO) 73.4 % (42-75); PLATELET COUNT 343 X10'3 (140-440); RED CELL DISTRIBUTION WIDTH 15.4 % (11.5-14.5); WHITE BLOOD COUNT 13.6 X10'3 (4.5-11.0)
--- NOTE | 2021-02-18 07:32 | NUR ---
Patient in room ISMAEL 349. I have received report from TIFFANY SAINZ, and had the opportunity to ask questions and assume patient care.
[2021-02-18] MEDS: levoTHYROXINE 88mcg tablet PO SCH (07:42)
[2021-02-18 07:48] LABS: ALBUMIN 2.7 G/DL (3.4-5.0); ANION GAP 11 (8-16); BLOOD UREA NITROGEN 16 MG/DL (7-18); BUN/CREATININE RATIO 18.4 (6.6-38.0); CALCIUM 8.6 MG/DL (8.5-10.1); CHLORIDE 107 MMOL/L (99-107); CREATININE 0.87 MG/DL (0.40-0.90); GLUCOSE 121 MG/DL (70-104); POTASSIUM 3.9 MMOL/L (3.5-5.1); SODIUM 141 MMOL/L (135-145); TOTAL CARBON DIOXIDE 23.2 MMOL/L (24-32); eGFR 66 ML/MIN
[2021-02-18] MEDS: apixaban 5mg tablet PO SCH ×2 (08:38→19:59)
[2021-02-18] MEDS: buPROPion SR 150mg tablet PO SCH ×2 (08:38→19:59)
--- NOTE | 2021-02-18 15:51 | NUR ---
PT'S ABD INCREASED IN SIZE AND FIRMNESS. VSS. NOTIFIED. SAID TO REMIND PT TO AMBULATE TO HELP WITH PASSING GAS. PT AMBULATED 20 FEET WITH WALKER AND STAND BY ASSIST X1.
--- NOTE | 2021-02-18 18:37 | NUR ---
Problems reprioritized. Patient report given, questions answered & plan of care reviewed with TIFFANY DOUGHERTY.
--- NOTE | 2021-02-18 18:41 | NUR ---
Patient in room ISMAEL 349. I have received report from LEONARD ALLEN and had the opportunity to ask questions and assume patient care. Addendum: 02/18/21 at 1842 by Elvira Mulligan RN Amended: Links added.
[2021-02-18] MEDS: tolterodine 2mg SR capsule (24hr) PO SCH (20:00)
[2021-02-18] MEDS: topiramate 25mg tablet PO SCH (20:00)
--- NOTE | 2021-02-18 21:16 | NUR ---
PT NOW SOB WITH AUDILE WHEEZES RESP RATE 30 HR 117, BP 161/93. PT NOW WITH CRACKLES IN THE BASES CALL OUT TO DR PALACIOS WHO IS WAREHOUSE PRODUCTION WORKER TONIGHT. DR PALACIOS NOTIFIED STATED IF PT NAUSEATED NPO AND P[LACE NG TUBE. IF UNABLE TO VOID PLACE GUTIERRES. IF ANCIOUS 1MG ATIVAN IV X1. START LR AT 75/HR IF MADE NPO AND NG IN.
--- NOTE | 2021-02-18 21:25 | NUR ---
MD AWARE CRACKLES BASES LUNGS PT DIAPYETIC AUDIBLE WHEEZES ASKED IF WANTED RT TX SAID NOT AT THIS TIME. OTHER ORDERS RECEIVED.
[2021-02-18] MEDS ORDERED: LIDOcaine 2% 10ml TOPICAL JELLY (Urojet) TP ONE (21:30)
[2021-02-18] MEDS ORDERED: LORazepam 2 mg/ml vial IV ONE (21:30)
--- NOTE | 2021-02-18 21:30 | NUR ---
BLADDER SCANNED AFTER VOIDING 25CC OF URINE NOTED NO URINE IN THE BLADDER.
--- NOTE | 2021-02-18 22:05 | NUR ---
PT WITH 2 RN'S AND STUDENTS PRESENT # 18 NG PLACED BEFORE NG EVEN IN THE STOMACH STILL IN THE ESOPHAGUS OUT PUT OF CREAMY GREEN GASTRIC CONTENTS STARTED TO DRAIN FROM THE NG TUBE. INSERTED IN LEFT NARES, TAPED TO NOSE AND PINNED TO GOWN AUSCULTATED AIR IN STOMACH. PT TOLERATED INSERTION.
[2021-02-18] MEDS: ringers solution, lacted 1,000 ML IV SCH (22:16)
--- NOTE | 2021-02-18 23:05 | NUR ---
PT HAD TOTAL 950CC CREAMY APPEARANCE GREEN GASTRIC CONTENTS. PT PUT ON BEDPAN PER REQUEST NO URINE OR GAS OUT AT THIS TIME. PT POSITIONED TOP COMFORT.
--- NOTE | 2021-02-18 23:20 | NUR ---
DAUGHTER CALLED TO CHECK ON PT AND AWARE SHE NOW HAS A NG TUBE IN. PT NOW RESTING PER REQUEST MADE SURE PT CELL PHONE CHARGING AND THAT IT RINGS AND NOT ON SILENT. PT NOW RESTING.
--- NOTE | 2021-02-19 00:24 | NUR ---
RESTING EYES CLOSED WITHOUT S&S OF DISTRESS AT THIS TIME.
[2021-02-19] MEDS: HYDROmorph./NS 0.2 mg/ml CADD 100 ML IV SCH ×10 (01:00→23:00)
--- NOTE | 2021-02-19 06:15 | NUR ---
Student documentation: I have reviewed and agree with all interventions, assessments performed and documented by LIANET SPRAGUE RN STUDENT.Student Medication Administration: For this medication-pass time frame, all medication were reviewed, dispensed, administered and documented per hospital policy by LIANET SPRAGUE RN STUDENT. Student documentation: I have reviewed and agree with all interventions, assessments performed and documented by LIANET GARCIA RN STUDENT. Addendum: 02/19/21 at 0617 by Elvira Mulligan RN Amended: Links added.
--- NOTE | 2021-02-19 06:21 | NUR ---
UP TO THE BEDSIDE COMMODE, CHANGED LINENS, GOWN, VOIDED 100ML DARK MARICARMEN
--- NOTE | 2021-02-19 06:40 | NUR ---
Problems reprioritized. Patient report given, questions answered & plan of care reviewed with BROCK ALLEN. Addendum: 02/19/21 at 0641 by Elvira Mulligan RN Amended: Links added.
[2021-02-19 07:00] VITALS: BP 137/87
[2021-02-19] MEDS: buPROPion SR 150mg tablet PO SCH ×2 (08:46→20:28)
[2021-02-19] MEDS: apixaban 5mg tablet PO SCH ×2 (08:46→20:28)
[2021-02-19] MEDS: levoTHYROXINE 88mcg tablet PO SCH (08:47)
[2021-02-19 10:48] LABS: BASOPHILS % (AUTO) 0.2 % (0-1); EOSINOPHILS # (AUTO) 0.1 X10'3 (0-0.9); EOSINOPHILS % (AUTO) 0.6 % (0-6); HEMATOCRIT 31.5 % (35.0-45.0); HEMOGLOBIN 10.5 g/dl (12.0-16.0); LYMPHOCYTES # (AUTO) 1.8 X10'3 (1.1-4.8); LYMPHOCYTES % (AUTO) 12.5 % (21-51); MEAN CORPUSCULAR HEMOGLOBIN 31.1 PG (27.0-31.0); MEAN CORPUSCULAR HGB CONC 33.2 g/dL (33.0-36.5); MEAN CORPUSCULAR VOLUME 93.7 FL (78-98); MEAN PLATELET VOLUME 7.2 FL (7.4-10.4); MONOCYTES # (AUTO) 1.5 X10'3 (0-0.9); MONOCYTES % (AUTO) 10.7 % (2-12); NEUTROPHILS # (AUTO) 10.9 X10'3 (1.8-7.7); PLATELET COUNT 425 X10'3 (140-440); RED BLOOD COUNT 3.36 X10'6 (4.20-5.60); RED CELL DISTRIBUTION WIDTH 15.2 % (11.5-14.5); WHITE BLOOD COUNT 14.4 X10'3 (4.5-11.0)
[2021-02-19 11:09] LABS: ALBUMIN 2.4 G/DL (3.4-5.0); ANION GAP 11 (8-16); BLOOD UREA NITROGEN 17 MG/DL (7-18); BUN/CREATININE RATIO 19.1 (6.6-38.0); CALCIUM 8.6 MG/DL (8.5-10.1); CHLORIDE 106 MMOL/L (99-107); CREATININE 0.89 MG/DL (0.40-0.90); GLUCOSE 128 MG/DL (70-104); MAGNESIUM 2.2 MG/DL (1.5-2.4); POTASSIUM 3.8 MMOL/L (3.5-5.1); SODIUM 140 MMOL/L (135-145); TOTAL CARBON DIOXIDE 23.5 MMOL/L (24-32); eGFR 64 ML/MIN
[2021-02-19] MEDS: ringers solution, lacted 1,000 ML IV SCH (12:08)
[2021-02-19 12:20] VITALS: BP 121/56
[2021-02-19 12:38] LABS: TOTAL CELLS COUNTED 100
[2021-02-19 12:39] LABS: PLATELET ESTIMATE NORMAL; POLYCHROMASIA FEW; TOXIC GRANULATION 1+
[2021-02-19] MEDS: dextrose 5%-lactated ringers 1,000 ML IV SCH ×2 (14:41→20:28)
[2021-02-19 18:00] VITALS: BP 138/77
--- NOTE | 2021-02-19 18:13 | NUR ---
Problems reprioritized. Patient report given, questions answered & plan of care reviewed with Elvira ALLEN.
--- NOTE | 2021-02-19 18:36 | NUR ---
Patient in room ISMAEL 349. I have received report from BEAU ALLEN and had the opportunity to ask questions and assume patient care. Addendum: 02/19/21 at 1836 by Elvira Mulligan RN Amended: Links added.
--- NOTE | 2021-02-19 18:56 | NUR ---
Student documentation: I have reviewed and agree with all interventions, assessments performed and documented by Justice ART
--- NOTE | 2021-02-19 18:56 | NUR ---
Problems reprioritized. Patient report given, questions answered & plan of care reviewed with Marcella ALLEN.
[2021-02-19] MEDS: topiramate 25mg tablet PO SCH (20:28)
[2021-02-19] MEDS: tolterodine 2mg SR capsule (24hr) PO SCH (20:28)
--- NOTE | 2021-02-19 23:40 | NUR ---
PT UP TO BEDSIDE COMMODE TO VOID URINE 750CC DARK YELLOW DOCUMENTED ON I&O RECORD AND THEN WHEN DONE GOT UP AND AMBULATED WITH RN WITH FRONT WHEEL WALKER. PT TOLERATED FAIR. IS USE DONE DID POOR WITH IT USED UP TO 500 DOES NOT FOLLOW IS INSTRUCTIONS WELL EASILY CONFUSED ON HOW TO FOLLOW DIRECTIONS AND USE.
[2021-02-20] VITALS: BP 153/79
[2021-02-20] MEDS: HYDROmorph./NS 0.2 mg/ml CADD 100 ML IV SCH ×12 (01:00→23:00)
[2021-02-20] MEDS: dextrose 5%-lactated ringers 1,000 ML IV SCH ×4 (03:27→23:35)
--- NOTE | 2021-02-20 06:00 | NUR ---
Student documentation: I have reviewed and agree with all interventions, assessments performed and documented by LIANET SPRAGUE RN STUDENT.Student Medication Administration: For this medication-pass time frame, all medication were reviewed, dispensed, administered and documented per hospital policy by LIANET SPRAGUE RN STUDENT. Addendum: 02/20/21 at 1909 by Elvira Mulligan RN Amended: Links added.
--- NOTE | 2021-02-20 06:26 | NUR ---
Problems reprioritized. Patient report given, questions answered & plan of care reviewed with George roberts. Addendum: 02/20/21 at 0628 by Elvira Mulligan RN Amended: Links added.
--- NOTE | 2021-02-20 06:51 | NUR ---
Patient in room ISMAEL 349. I have received report from Elvira ALLEN and had the opportunity to ask questions and assume patient care.
[2021-02-20 08:00] VITALS: BP 144/71
[2021-02-20] MEDS: levoTHYROXINE 88mcg tablet PO SCH (10:02)
[2021-02-20] MEDS: apixaban 5mg tablet PO SCH ×2 (10:03→21:31)
[2021-02-20] MEDS: buPROPion SR 150mg tablet PO SCH ×2 (10:03→21:32)
[2021-02-20 11:00] VITALS: BP 137/79
--- NOTE | 2021-02-20 15:51 | NUR ---
Initial: Pt admit s/p laparoscopic extensive lysis of adhesions and repair of recurrent visceral hernia per EMR. Advanced to clear liquids since 02/16 however NG placed 02/18 r/t abdominal distention w/ no gas or stool post-op per EMR. Still allowed to have clears sips PO ~25-50% clears past three days however intake being suctioned via NG. Day [address] d/w RN who reports pt had first gas/BM this afternoon and pending MD rounds regarding NG removal and diet advancement. Pt currently receiving D5/LR at 150ml/hr providing 612kcals/day. Will monitor for diet advancement and additional nutrition intervention needs post-op. Rec: 1. advance diet as medically indicated to heart healthy 2. monitor for ONS needs w/ diet advancement pending further PO hx 3. routine bowel care 4. weekly wts Addendum: 02/20/21 at [address] Amended: Links added.
--- NOTE | 2021-02-20 18:54 | NUR ---
Student documentation: I have reviewed and agree with all interventions, assessments performed and documented by Justice GRIFFITH.
--- NOTE | 2021-02-20 18:56 | NUR ---
Problems reprioritized. Patient report given, questions answered & plan of care reviewed with Lillian ALLEN.
--- NOTE | 2021-02-20 18:57 | NUR ---
Patient in room ISMAEL 349. I have received report from BEAU ALLEN and had the opportunity to ask questions and assume patient care.
[2021-02-20 20:00] VITALS: BP 137/80
[2021-02-20] MEDS ORDERED: benzocaine/menthol oral lozeng 1 EACH BOX MM PRN (20:35)
[2021-02-20] MEDS: topiramate 25mg tablet PO SCH (21:32)
[2021-02-20] MEDS: tolterodine 2mg SR capsule (24hr) PO SCH (21:32)
[2021-02-21] VITALS: BP 152/81
[2021-02-21] MEDS: dextrose 5%-lactated ringers 1,000 ML IV SCH ×3 (00:38→16:34)
[2021-02-21] MEDS: HYDROmorph./NS 0.2 mg/ml CADD 100 ML IV SCH ×12 (01:00→23:00)
--- NOTE | 2021-02-21 06:26 | NUR ---
Problems reprioritized. Patient report given, questions answered & plan of care reviewed with CAIN ALLEN.
--- NOTE | 2021-02-21 06:31 | NUR ---
Patient in room ISMAEL 349. I have received report from TIFFANY SANCHEZ and had the opportunity to ask questions and assume patient care.
[2021-02-21 07:00] VITALS: BP 128/59
[2021-02-21] MEDS: apixaban 5mg tablet PO SCH ×2 (08:11→20:07)
[2021-02-21] MEDS: buPROPion SR 150mg tablet PO SCH ×2 (08:11→20:09)
[2021-02-21] MEDS: levoTHYROXINE 88mcg tablet PO SCH (08:20)
--- NOTE | 2021-02-21 08:29 | NUR ---
Patient appears to be SOB even at rest lungs sounds clear but diminished. Patient O2 is at 99% RA and per patient she is not normally SOB. Notified Dr. Yun as patient is on maintenance fluids at 150ml/hr. Received orders for chem 7 , lasix 40mg x1 IV and fluids to be TKO.
[2021-02-21] MEDS ORDERED: furosemide 40mg/4ml inj IV ONE (08:35)
[2021-02-21 09:54] LABS: ALBUMIN 2.2 G/DL (3.4-5.0); ANION GAP 14 (8-16); BLOOD UREA NITROGEN 7 MG/DL (7-18); BUN/CREATININE RATIO 7.5 (6.6-38.0); CALCIUM 8.7 MG/DL (8.5-10.1); CHLORIDE 110 MMOL/L (99-107); CREATININE 0.93 MG/DL (0.40-0.90); GLUCOSE 142 MG/DL (70-104); POTASSIUM 3.2 MMOL/L (3.5-5.1); SODIUM 143 MMOL/L (135-145); TOTAL CARBON DIOXIDE 18.9 MMOL/L (24-32); eGFR 61 ML/MIN
[2021-02-21] MEDS ORDERED: potassium Cl 40MEQ/1/2NS 520ml 520 ML IV PRN (10:15)
[2021-02-21] MEDS ORDERED: potassium Cl 20 mEq SR tablet PO PRN ×2 (10:15)
[2021-02-21] MEDS ORDERED: magnesium 4gm in 100ml NS 100 ML IV PRN (10:15)
[2021-02-21] MEDS ORDERED: magnesium Cl slow-release 64mg tablet PO PRN (10:15)
[2021-02-21 12:18] VITALS: BP 132/75
[2021-02-21 18:40] VITALS: BP 123/73
[2021-02-21] MEDS ORDERED: K and/or MAG REPLACEMENT MC SCH (20:00)
[2021-02-21] MEDS: tolterodine 2mg SR capsule (24hr) PO SCH (20:09)
[2021-02-21] MEDS: topiramate 25mg tablet PO SCH (20:10)
--- NOTE | 2021-02-21 23:05 | NUR ---
Student Medication Administration: For this medication-pass time frame, all medication were reviewed, dispensed, administered and documented per hospital policy by FILIBERTO Parkinson [facility].
--- NOTE | 2021-02-21 23:09 | NUR ---
Student documentation: I have reviewed interventions, assessments performed and documented by Haven Cardenas [facility] .
[2021-02-21] MEDS: oxyCODONE/APAP 10/325mg tablet PO PRN (23:47)
[2021-02-22] MEDS: HYDROmorph./NS 0.2 mg/ml CADD 100 ML IV SCH ×5 (01:00→09:00)
[2021-02-22] MEDS: CADD PCA waste documentation MC PRN ×2 (01:36→10:16)
--- NOTE | 2021-02-22 06:47 | NUR ---
Problems reprioritized. Patient report given, questions answered & plan of care reviewed with Ayaka. Addendum: 02/22/21 at 0647 by Nathan Goins RN Amended: Links added.
--- NOTE | 2021-02-22 06:59 | NUR ---
Patient in room ISMAEL 349. I have received report from TIFFANY Gómez and had the opportunity to ask questions and assume patient care.
--- NOTE | 2021-02-22 07:51 | NUR ---
diminished sounds,possibly due to adipose tissue Addendum: 02/22/21 at 0755 by Yris Roberto - Wili GRIMM Amended: Links added.
[2021-02-22] MEDS: buPROPion SR 150mg tablet PO SCH (07:58)
[2021-02-22] MEDS: levoTHYROXINE 88mcg tablet PO SCH (07:58)
[2021-02-22] MEDS: apixaban 5mg tablet PO SCH (07:59)
[2021-02-22 08:00] VITALS: BP 125/73
[2021-02-22] MEDS: oxyCODONE/APAP 10/325mg tablet PO PRN (12:49)
--- NOTE | 2021-02-22 18:25 | NUR ---
Problems reprioritized. Patient report given, questions answered & plan of care reviewed with TIFFANY Parker.
--- NOTE | 2021-02-22 18:50 | NUR ---
I have received report from TIFFANY Marley and had the opportunity to ask questions and assume patient care.
[2021-02-22 19:25] VITALS: BP 125/79
--- NOTE | 2021-02-22 19:32 | NUR ---
Patient has been discharged transported via wheelchair, with her belongings. Son in law is taking her home. IV was taken out prior to DC a long with discharge instructions. Patient showed understanding of the DC instructions. Rod intact, open to air. Vital signs within normal limits and charted.
== END 2021-02-22 19:29 | disposition home or self-care (01) | DRG 227 ==
LOC: PAS 07:37 → SUR 3N 17:56
PROVIDERS: ADMIT Surgery; ATTEND Surgery
PROC: 0DNW4ZZ Release Peritoneum, Percutaneous Endoscopic Approach (ICD-10-PCS; 2021-02-15)
PROC: 3E0T3BZ Introduction of Anesthetic Agent into Peripheral Nerves and Plexi, Percutaneous Approach (ICD-10-PCS; 2021-02-15)
PROC: 3E0T33Z Introduction of Anti-inflammatory into Peripheral Nerves and Plexi, Percutaneous Approach (ICD-10-PCS; 2021-02-15)
PROC: 0WQF4ZZ Repair Abdominal Wall, Percutaneous Endoscopic Approach (ICD-10-PCS; principal; 2021-02-15 12:12)
DX: K43.2 Incisional hernia without obstruction or gangrene (principal); K56.7 Ileus, unspecified; D25.9 Leiomyoma of uterus, unspecified; E03.9 Hypothyroidism, unspecified; G89.29 Other chronic pain; E66.9 Obesity, unspecified; J45.909 Unspecified asthma, uncomplicated; K66.0 Peritoneal adhesions (postprocedural) (postinfection); M62.08 Separation of muscle (nontraumatic), other site; F32.A Depression, unspecified; Z88.5 Allergy status to narcotic agent; Z88.8 Allergy status to other drugs, medicaments and biological substances; Z90.49 Acquired absence of other specified parts of digestive tract; Z68.38 Body mass index [BMI] 38.0-38.9, adult
CPT/HCPCS: 36415; 80048; 80053; 81001; 82948; 83735; 85007; 85025; 87081; 93005; 97110; 97116; 97162; 97530; A4215; A4618; C1758; C9290; G0378; J0131; J0690; J1170; J1940; J2001; J2175; J2250; J2405; J2704; J3010; J3370; J3490; J7120; J7121; U0003; U0005